=== PATIENT | male | born 1995 | race Two or more races ===

== ENCOUNTER 2020-01-28 11:13 | Outpatient (REF) | payer OTHER, SELFPAY | END 2020-01-28 11:14 | disposition home or self-care (01) | LOC: HO.LAB 11:13 | PROVIDERS: PCP Internal Medicine; Visit Provider Internal Medicine | DX: Z20.828 Contact with and (suspected) exposure to other viral communicable diseases (principal) | CPT/HCPCS: C9803; U0003 ==

== ENCOUNTER 2021-03-16 09:08 | Emergency (ER) | payer OTHER, SELFPAY ==
--- NOTE | ~2021-03-16 | XR_ITS ---
EXAMINATION: XR FINGER, RIGHT CLINICAL INFORMATION: Crush injury COMPARISON: None 3 views of the middle finger on the right does not demonstrate evidence for fracture or dislocation. XR/XR finger RT min 2V IMPRESSION: No displaced fracture or dislocation right third finger
[2021-03-16 09:28] VITALS: BP 140/85; PULSE 105; RESP 18; TEMP 37; O2SAT 97; BMI 22.6
--- NOTE | 2021-03-16 11:31 | ED.EXTPRO ---
HPI - Extremity Problem General Chief complaint: Extremity Injury, Upper Stated complaint: finger injury work related Time Seen by Provider: 03/16/21 11:28 Source: patient Mode of arrival: ambulatory Limitations: no limitations History of Present Illness HPI Narrative: Patient comes to the emergency room complaining of a right middle finger crush injury to the distal aspect of the finger. 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 Patient complaining of localized pain, no other injuries. Related Data Allergies Allergy/AdvReac Type Severity Reaction Status Date / Time No Known Allergies Allergy Verified 03/16/21 09:27 Review of Systems Review of Systems: Constitutional : No Weight loss, No Fever, No Chills, No Night Sweats, No Fatigue, No Malaise ENT/Mouth : No Hearing loss, No Ear Pain, No Nasal Congestion, No Sinus Pain, No Hoarseness, No sore throat, No Rhinorrhea, No Swallowing Difficulty Eyes: No Eye Pain, No Swelling, No Redness, No Foreign Body, No Discharge, No Vision Changes Cardiovascular : No Chest Pain, No SOB, No Dyspnea on Exertion, No Orthopnea, No Edema, No Palpitations Respiratory : No Cough, No Sputum, No Wheezing, No Smoke Exposure, No Dyspnea Gastrointestinal : No Nausea, No Vomiting, No Diarrhea, No Constipation, No abdominal Pain, No Hematochezia, No Melena Genitourinary : no irregular bleeding, No Dysuria, No Urinary Frequency, No Hematuria, No Urinary Incontinence, No Urgency, No Flank Pain, No Urinary Flow Changes, No Hesitancy Musculoskeletal : Complaining of pain in the middle finger distal aspect right hand, No Myalgias, No Joint Swelling Skin : No Skin Lesions, No rash Neuro : No Weakness, No Numbness, No Paresthesias, No Loss of Consciousness, No Dizziness, No Headache Psych : No Anxiety/Panic, No Depression, No SI/HI/AH/VH, No Social Issues, Heme/Lymph: No Bruising, No Bleeding,No Lymphadenopathy Endocrine : No Polyuria, No Polydipsia, No Temperature Intolerance [facility] Social History Social History Advance Directives: No Advance Directives Information Provided: No Physical Exam Vital Signs: Vital Signs: Last Vital Signs Temp 98.6 F 03/16/21 09:28 Pulse 105 H 03/16/21 09:28 Resp 18 03/16/21 09:28 BP 140/85 H 03/16/21 09:28 Pulse Ox 97 03/16/21 09:28 BMI result Body Mass Index 22.6 Const: Other: Appearance: Alert. Oriented X3. No acute distress. Eyes: Pupils equal, round and reactive to light. ENT: Pharynx normal. Neck: Normal inspection. Neck supple. No lymph nodes noted. No crepitus CVS: Normal heart rate and rhythm. Pulses normal. Normal S1 and S2 Respiratory: No respiratory distress. Breath sounds normal. No Wheezing. No rales Abdomen: Soft and nontender. No rigidity. No distention. good BS x4 Skin: Skin warm and dry. Normal skin color. Normal skin turgor. Small abrasion to the right middle finger Extremities: No lower extremity edema. Mild ecchymosis on the palmar aspect of the right middle finger, no abrasions, no necrosis, normal flexion and extension of the finger Neuro: Oriented X 3. No motor deficit. No sensory deficit. Moving all extermities. No slurred speech. Course Course Course Narrative: Patient's x-rays are negative. Patient was given Tdap since the skin did break, small abrasion. MDM - Extremity (Nontraumatic) Imaging Data Right hand x-ray: Radiologist's impression: 3 views of the middle finger on the right does not demonstrate evidence for fracture or dislocation. XR/XR finger RT min 2V IMPRESSION: No displaced fracture or dislocation right third finger Discharge Plan Discharge Clinical Impression: Crush injury to finger Qualifiers: Encounter type: initial encounter Qualified Code(s): S67.10XA - Crushing injury of unspecified finger(s), initial encounter Patient Disposition: Home, Self-Care Instructions: Crush Injury (ED) Additional Instructions: Please follow-up with your primary care physician tomorrow. If you have any worsening or new symptoms, please return to the emergency room or call 911
[2021-03-16] MEDS: Diphth,Pertus(ACell),Tet Adult 0.5 ML SYRINGE IM (11:56)
== END 2021-03-16 12:01 | disposition home or self-care (01) ==
PROVIDERS: Emergency Provider Emergency Medicine
DX: S67.10XA Crushing injury of unspecified finger(s), initial encounter (principal); S60.511A Abrasion of right hand, initial encounter; M79.644 Pain in right finger(s); Y29.XXXA Contact with blunt object, undetermined intent, initial encounter; Y93.9 Activity, unspecified; Y92.9 Unspecified place or not applicable; Y99.9 Unspecified external cause status
CPT/HCPCS: 73140; 90471; 90715; 99283; 99284

== ENCOUNTER → 2021-07-06 10:48 | Outpatient (BNVA) | payer OTHER, SELFPAY | PROVIDERS: Visit Provider Physician Assistant | DX: S39.012A Strain of muscle, fascia and tendon of lower back, initial encounter (principal); X50.0XXA Overexertion from strenuous movement or load, initial encounter | CPT/HCPCS: 99203 ==

== ENCOUNTER → 2021-07-13 15:35 | Outpatient (BNVA) | payer OTHER, SELFPAY | PROVIDERS: Visit Provider Physician Assistant | DX: S39.012D Strain of muscle, fascia and tendon of lower back, subsequent encounter (principal); X58.XXXD Exposure to other specified factors, subsequent encounter | CPT/HCPCS: 99213 ==

== ENCOUNTER 2021-09-25 18:15 | Emergency (ER) | payer OTHER, MEDICAID, SELFPAY ==
--- NOTE | ~2021-09-25 | CT_ITS ---
EXAMINATION: CT ABDOMEN AND PELVIS WITH CONTRAST CLINICAL INFORMATION: Abdominal pain COMPARISON: 12/26/2018 TECHNIQUE: Multidetector volumetric images were obtained from the superior aspect of the liver through the pubic symphysis following administration 85 mL of Omnipaque 350 intravenous contrast. Sagittal and coronal reformatted images were obtained on the technologist's workstation. Oral contrast: No This CT examination was performed using dose optimization techniques as appropriate, variously including the following: *Automated exposure control *Adjustment of mA and/or kV according to patient size (this includes techniques or standardized protocols for targeted exams where dose is matched to indication/reason for exam; i.e. extremities or head) *Use of iterative reconstruction technique DLP: 450 mGy-cm FINDINGS: LUNG BASES: The visualized lung bases are unremarkable. LIVER, GALLBLADDER, AND BILIARY TREE: The liver is normal in size, shape, and attenuation. No focal hepatic lesion or biliary ductal dilatation is present. The gallbladder is unremarkable with no evidence of radiopaque gallstones, gallbladder wall thickening, or obvious pericholecystic inflammatory changes. PANCREAS: Unremarkable. SPLEEN: Unremarkable. ADRENAL GLANDS: Unremarkable. KIDNEYS AND URETERS: The kidneys are normal in size, shape, and attenuation. No hydronephrosis, hydroureter, or obstructing calculi seen. No perinephric stranding. BLADDER: Unremarkable. GASTROINTESTINAL TRACT: No evidence of bowel obstruction. No significant bowel wall thickening is seen. No free fluid or free air is seen. ABDOMINAL WALL: No significant hernia is appreciated. LYMPH NODES: Normal. VASCULAR: Unremarkable. PELVIC VISCERA: Unremarkable. OSSEOUS STRUCTURES: Unremarkable. CT/CT abdomen pelvis w con IMPRESSION: No acute findings identified in the abdomen/pelvis.
[2021-09-25 18:27] VITALS: BP 143/87; PULSE 78; RESP 18; TEMP 36.6; O2SAT 98; BMI 25.0
[2021-09-25 21:42] LABS: MANUAL DIFF FLAG NO
[2021-09-25 21:49] LABS: Basophils Absolute Auto 0.1 X10*3/uL (0.0-0.2); Basophils Percent Auto 0.6 % (0-2); Eosinophils Absolute Auto 0.1 X10*3/uL (0.0-0.4); Eosinophils Percent Auto 1.3 % (0-4); Hematocrit 43.5 % (42.0-52.0); Hemoglobin 14.5 g/dl (14.0-18.0); Imm Gran Abs Auto 0.02 X10*3/uL (0.00-0.03); Imm Gran Pct Auto 0.2 % (0.0-0.4); Lymphocytes Absolute Auto 3.1 X10*3/uL (1.2-4.9); Lymphocytes Percent Auto 34.1 % (20-40); Mean Corpuscular HGB Conc 33.3 g/dl (31.0-36.0); Mean Corpuscular Hemoglobin 26.1 pg (27.0-33.0); Mean Corpuscular Volume 78.2 fL (80.0-98.0); Mean Platelet Volume 9.8 fL (9.4-12.4); Monocytes Absolute Auto 0.6 X10*3/uL (0.1-1.2); Monocytes Percent Auto 6.9 % (2-11); Neutrophils Absolute Auto 5.2 x10*3/uL (2.0-8.3); Neutrophils Percent Auto 56.9 % (45-73); Platelet Count 336 X10*3/uL (160-400); Red Blood Count 5.56 X10*6/uL (4.60-5.80); Red Cell Distribution Width 13.3 % (11.0-16.0); White Blood Count 9.1 X10*3/uL (4.8-10.8)
[2021-09-25 22:12] LABS: Alanine Aminotransferase 33 U/L (0-40); Albumin Level 4.5 g/dL (3.5-5.0); Alkaline Phosphatase 86 U/L (39-117); Anion Gap 13 (12-20); Aspartate Amino Transferase 17 U/L (5-37); Bilirubin Total 0.8 mg/dL (0.0-1.0); Blood Urea Nitrogen 12 mg/dL (9-16); Calcium 9.9 mg/dL (8.4-10.2); Carbon Dioxide 28 mmol/L (22-29); Chloride 104 mmol/L (96-108); Creatinine Clr Calc Pharmacy 131.4; Estimated Glomerular Filt Rate > 60; Glucose Random 118 mg/dL (60-115); Potassium 3.8 mmol/L (3.3-5.1); Sodium 141 mmol/L (135-145); Total Protein 7.8 g/dL (6.5-8.0)
--- NOTE | 2021-09-25 23:53 | ED.ABDPAIN ---
HPI - Abdominal Pain General Chief Complaint: Abdominal Pain Stated Complaint: abdominal pain Time Seen by Provider: 09/25/21 23:34 Source: patient Mode of arrival: ambulatory Limitations: no limitations History of Present Illness HPI narrative: 26-year-old male presents with abdominal pain and intermittent bulging at a prior surgical incision site. States that the abdominal pain and bulging occurs when he is lifting at work. He was seen at urgent care and referred to the emergency department as he has had prior abdominal surgeries and needs more imaging than urgent care to provide. Patient denies fevers, chills, abdominal distention, obstruction, dysuria, urinary retention, chest pain or pressure, palpitations, weakness or diaphoresis. MD elicited complaint: abdominal pain Pertinent past history: other (Abdominal surgery for hernia repair) Onset (ago): week(s) Pain Consistency: intermittent Location: diffuse Severity: moderate Pain scale (0-10): 6 Quality: aching Radiation: none Exacerbating factors: movement and other (Lifting) Relieving factors: rest Context: other (Prior abdominal surgery) Associated symptoms: denies other symptoms Related Data Allergies Allergy/AdvReac Type Severity Reaction Status Date / Time No Known Allergies Allergy Verified 03/16/21 09:27 Review of Systems Review of Systems Constitutional: No Fever, No Chills ENT/Mouth: No Ear Pain, No Hoarseness, No sore throat Eyes: No Eye Pain, No Swelling, No Redness, No Foreign Body Cardiovascular: No Chest Pain, No SOB Respiratory: No Cough, No Dyspnea Gastrointestinal: No Nausea, No Vomiting, No Diarrhea, positive abdominal Pain, positive abdominal bulging Genitourinary: No Dysuria, No Hematuria Musculoskeletal: No joint pain, No Myalgias, No Joint Swelling Skin: No Skin lacerations, No rash Neuro: No Weakness, No Numbness, No Paresthesias, No Loss of Consciousness, No Dizziness, No Headache Psych: No Anxiety/Panic, No Depression Heme/Lymph: no easy bruising, no Lymphadenopathy Endocrine: No Polyuria, No Polydipsia Yes all other systems are reviewed and are negative [facility] Past Medical History Attestation statement: The following information was validated with the patient. Source: old records reviewed Social History Social History Advance Directives: No Physical Exam ED Vital Signs: Vital Signs - 24 hr 09/25/21 18:27 Temperature 97.8 F Pulse Rate 78 Respiratory Rate 18 Blood Pressure 143/87 H Pulse Oximetry 98 Oxygen Delivery Method Room Air BMI result Body Mass Index 25.0 Appearance: Alert. Oriented X3. No acute distress. Eyes: Pupils equal, round and reactive to light. ENT: Pharynx normal. Neck: Normal inspection. Neck supple. CVS: Normal heart rate and rhythm. Pulses normal. Respiratory: No respiratory distress. Breath sounds normal. Abdomen: Soft and nontender. Transverse surgical scar about 3 cm above umbilicus. Skin: Skin warm and dry. Normal skin color. Normal skin turgor. Extremities: Gait well balanced well coordinated. Neuro: No motor deficit. No sensory deficit. Cranial nerves 2-12 intact. Course Course Course Narrative: 26-year-old male presents from urgent care for evaluation for suspected hernia and a transverse surgical site. This transverse surgical site was a prior hernia repair. Patient does not complain of any abdominal distention, or inability to pass flatus or stools. He does report that his stool smell worse than normal, does not report any abnormal coloring or form. Will order CT scan of abdomen and pelvis as patient states that there is this intermittent bulging at the center of the transverse surgical site. Physical exam is unremarkable. I do not appreciate any bulging at this time. 02:00 CT scan of abdomen pelvis is negative for acute findings. Will have patient follow-up with his primary care physician as well as work connection as he does only report this bulging and pain while he is lifting heavy objects while at work. Patient verbalized understanding of and agrees to plan of care discharge home. Verbalized understanding of signs and symptoms indicating need for emergent intervention. MDM - Abdominal Pain Differential Diagnosis Differential diagnosis: Likely abdominal pain and small bowel obstruction Differential diagnosis narrative:: hernia Medical Records Attestation: I reviewed the patient's medical records. Lab Data Attestation: I reviewed the patient's lab results. Result diagrams: 09/25/21 21:38 09/25/21 21:38 Labs: Lab Results 09/25/21 09/25/21 Range/Units 21:38 21:38 WBC 9.1 (4.8-10.8) X10*3/uL RBC 5.56 (4.60-5.80) X10*6/uL Hgb 14.5 (14.0-18.0) g/dl Hct 43.5 (42.0-52.0) % MCV 78.2 L (80.0-98.0) fL MCH 26.1 L (27.0-33.0) pg MCHC 33.3 (31.0-36.0) g/dl RDW 13.3 (11.0-16.0) % Plt Count 336 (160-400) X10*3/uL MPV 9.8 (9.4-12.4) fL Immature Gran % (Auto) 0.2 (0.0-0.4) % Neut % (Auto) 56.9 (45-73) % Lymph % (Auto) 34.1 (20-40) % [place] % (Auto) 6.9 (2-11) % Eos % (Auto) 1.3 (0-4) % Baso % (Auto) 0.6 (0-2) % Lymph # (Auto) 3.1 (1.2-4.9) X10*3/uL [place] # (Auto) 0.6 (0.1-1.2) X10*3/uL Eos # (Auto) 0.1 (0.0-0.4) X10*3/uL Baso # (Auto) 0.1 (0.0-0.2) X10*3/uL Abs Immat Gran (auto) 0.02 (0.00-0.03) X10*3/uL Absolute Neuts (auto) 5.2 (2.0-8.3) x10*3/uL Absolute Nucleated RBC 0.000 (0.0-0.012) X10*3/uL Nucleated RBC % (auto) 0.0 (0.0-0.2) /100WBC Sodium 141 (135-145) mmol/L Potassium 3.8 (3.3-5.1) mmol/L Chloride 104 (96-108) mmol/L Carbon Dioxide 28 (22-29) mmol/L Anion Gap 13 (12-20) BUN 12 (9-16) mg/dL Creatinine 0.81 (0.5-1.4) mg/dL Estim Creat Clear Calc 131.4 Estimated GFR > 60 Random Glucose 118 H (60-115) mg/dL Calcium 9.9 (8.4-10.2) mg/dL Magnesium 1.9 (1.6-2.6) mg/dL Total Bilirubin 0.8 (0.0-1.0) mg/dL Direct Bilirubin 0.3 (0.0-0.5) mg/dL AST 17 (5-37) U/L ALT 33 (0-40) U/L Alkaline Phosphatase 86 (39-117) U/L Total Protein 7.8 (6.5-8.0) g/dL Albumin 4.5 (3.5-5.0) g/dL Lipase 31 (8-78) U/L Imaging Data CT scan - abdomen: Attestation: I personally reviewed and interpreted this imaging study as follows: Radiologist's impression: FINDINGS: LUNG BASES: The visualized lung bases are unremarkable.? LIVER, GALLBLADDER, AND BILIARY TREE: The liver is normal in size, shape, and attenuation. No focal hepatic lesion or biliary ductal dilatation is present. The gallbladder is unremarkable with no evidence of radiopaque gallstones, gallbladder wall thickening, or obvious pericholecystic inflammatory changes.? PANCREAS: Unremarkable.? SPLEEN: Unremarkable.? ADRENAL GLANDS: Unremarkable.? KIDNEYS AND URETERS: The kidneys are normal in size, shape, and attenuation. No hydronephrosis, hydroureter, or obstructing calculi seen. No perinephric stranding. BLADDER: Unremarkable.? GASTROINTESTINAL TRACT: No evidence of bowel obstruction. No significant bowel wall thickening is seen. No free fluid or free air is seen.? ABDOMINAL WALL: No significant hernia is appreciated.? LYMPH NODES: Normal. VASCULAR: Unremarkable. PELVIC VISCERA: Unremarkable.? OSSEOUS STRUCTURES: Unremarkable.? CT/CT abdomen pelvis w con IMPRESSION: No acute findings identified in the abdomen/pelvis.? Discharge Plan Discharge Clinical Impression: Abdominal pain Patient Disposition: Home, Self-Care Instructions: Abdominal Pain (ED) Additional Instructions: You were evaluated for abdominal pain. CT scan of abdomen pelvis is negative for acute findings requiring emergent intervention. Please follow-up with your primary care physician for suspected hernia. Please follow-up with [facility] if symptoms persist. Return to the emergency department for any new, concerning, or worsening symptoms. Referrals: [facility] [Provider Group] (Abdominal pain, suspected hernia from heavy lifting) Stand Alone Forms: Work/School Release
[2021-09-26 00:28] LABS: Bilirubin Direct 0.3 mg/dL (0.0-0.5); Lipase 31 U/L (8-78); Magnesium 1.9 mg/dL (1.6-2.6)
[2021-09-26] MEDS: iohexoL 350 MG/ML 100 ML INFUS..BTL 85 ML IV (01:24)
== END 2021-09-26 02:27 | disposition home or self-care (01) ==
PROVIDERS: Emergency Medicine Emergency Medical Services; Emergency Provider Emergency Medicine
DX: R10.9 Unspecified abdominal pain (principal); Z79.899 Other long term (current) drug therapy
CPT/HCPCS: 36415; 74177; 80053; 82248; 83690; 83735; 85025; 99282; 99284; Q9967

== ENCOUNTER → 2021-10-01 13:36 | Outpatient (BNVA) | payer OTHER, SELFPAY | PROVIDERS: Visit Provider Internal Medicine | DX: R10.9 Unspecified abdominal pain (principal); R22.9 Localized swelling, mass and lump, unspecified | CPT/HCPCS: 99202 ==

== ENCOUNTER → 2021-10-05 15:20 | Outpatient (BNVA) | payer OTHER, SELFPAY | PROVIDERS: PCP Internal Medicine; Visit Provider Surgery | DX: R10.13 Epigastric pain (principal) | CPT/HCPCS: 99202 ==

== ENCOUNTER → 2021-10-22 15:46 | Outpatient (BNVA) | payer OTHER, SELFPAY | PROVIDERS: PCP Internal Medicine; Visit Provider Internal Medicine | DX: R10.9 Unspecified abdominal pain (principal) | CPT/HCPCS: 99213 ==

== ENCOUNTER 2021-12-06 09:56 | Emergency (ER) | payer OTHER, SELFPAY ==
--- NOTE | ~2021-12-06 | XR_ITS ---
EXAMINATION: XR CHEST CLINICAL INFORMATION: Dyspnea COMPARISON: Chest radiograph 04/15/2018 TECHNIQUE: 2 views of the chest were obtained. FINDINGS: No significant abnormality is noted involving the heart, lungs, mediastinum, bony thorax or soft tissues. XR/XR chest 2V IMPRESSION: Unremarkable examination.
[2021-12-06 10:01] VITALS: BP 146/100; PULSE 98; O2SAT 99
--- NOTE | 2021-12-06 10:01 | ECG_ITS ---
Test Reason : chest pain Blood Pressure : / mmHG Vent. Rate : 072 BPM Atrial Rate : 072 BPM P-R Int : 148 ms QRS Dur : 094 ms QT Int : 372 ms P-R-T Axes : 055 071 044 degrees QTc Int : 407 ms Normal sinus rhythm Normal ECG No previous ECGs available Referred By: Generic ED Physician Electronically Signed By:RICARDA CRUZ
[2021-12-06 10:07] VITALS: BP 142/78; PULSE 85; RESP 16; TEMP 36.6; O2SAT 97; BMI 24.8
== END 2021-12-06 16:41 | disposition left against medical advice (07) ==
PROVIDERS: Emergency Provider Emergency Medicine; PCP Internal Medicine
DX: R07.9 Chest pain, unspecified (principal); R06.02 Shortness of breath
CPT/HCPCS: 71046; 93005; 99283

== ENCOUNTER 2021-12-13 14:55 | Outpatient (REF) | payer OTHER, SELFPAY ==
[2021-12-13 15:06] LABS: MANUAL DIFF FLAG NO
[2021-12-13 15:16] LABS: Basophils Percent Auto 0.3 % (0-2); Eosinophils Absolute Auto 0.1 X10*3/uL (0.0-0.4); Eosinophils Percent Auto 0.6 % (0-4); Hematocrit 44.4 % (42.0-52.0); Hemoglobin 14.6 g/dl (14.0-18.0); Imm Gran Abs Auto 0.03 X10*3/uL (0.00-0.03); Imm Gran Pct Auto 0.3 % (0.0-0.4); Lymphocytes Absolute Auto 2.3 X10*3/uL (1.2-4.9); Lymphocytes Percent Auto 25.4 % (20-40); Mean Corpuscular HGB Conc 32.9 g/dl (31.0-36.0); Mean Corpuscular Hemoglobin 25.6 pg (27.0-33.0); Mean Corpuscular Volume 77.8 fL (80.0-98.0); Mean Platelet Volume 9.5 fL (9.4-12.4); Monocytes Absolute Auto 0.6 X10*3/uL (0.1-1.2); Monocytes Percent Auto 6.1 % (2-11); Neutrophils Percent Auto 67.3 % (45-73); Platelet Count 360 X10*3/uL (160-400); Red Blood Count 5.71 X10*6/uL (4.60-5.80); Red Cell Distribution Width 13.5 % (11.0-16.0)
[2021-12-13 15:46] LABS: Alanine Aminotransferase 36 U/L (0-40); Albumin Level 4.6 g/dL (3.5-5.0); Alkaline Phosphatase 87 U/L (39-117); Anion Gap 14 (12-20); Aspartate Amino Transferase 17 U/L (5-37); Bilirubin Total 0.7 mg/dL (0.0-1.0); Blood Urea Nitrogen 9 mg/dL (9-16); Calcium 9.8 mg/dL (8.4-10.2); Carbon Dioxide 27 mmol/L (22-29); Chloride 103 mmol/L (96-108); Cholesterol 173 mg/dL; Estimated Glomerular Filt Rate > 60; Glucose Random 96 mg/dL (60-115); HDL Cholesterol 52 mg/dL; LDL Cholesterol Calculated 100 mg/dl; Potassium 3.8 mmol/L (3.3-5.1); Sodium 140 mmol/L (135-145); Total Protein 7.6 g/dL (6.5-8.0); Triglycerides 109 mg/dL
[2021-12-13 16:10] LABS: Ferritin 89 ng/mL (20-250)
== END 2021-12-13 14:56 | disposition home or self-care (01) ==
LOC: HO.LAB 14:55
PROVIDERS: PCP Internal Medicine; Visit Provider Internal Medicine
DX: Z00.00 Encounter for general adult medical examination without abnormal findings (principal); K21.9 Gastro-esophageal reflux disease without esophagitis; F90.2 Attention-deficit hyperactivity disorder, combined type; F31.9 Bipolar disorder, unspecified
CPT/HCPCS: 36415; 80053; 80061; 82728; 84443; 85025

== ENCOUNTER 2022-06-12 10:37 | Emergency (ER) | payer OTHER, MEDICAID, SELFPAY ==
--- NOTE | 2022-06-12 | ECG_ITS ---
Test Reason : cp Blood Pressure : / mmHG Vent. Rate : 071 BPM Atrial Rate : 071 BPM P-R Int : 156 ms QRS Dur : 096 ms QT Int : 350 ms P-R-T Axes : 030 060 037 degrees QTc Int : 380 ms Normal sinus rhythm Normal ECG When compared with ECG of 06-DEC-2021 10:01, No significant change was found Referred By: Generic ED Physician Electronically Signed By:Reese Hassan
[2022-06-12 10:41] VITALS: BP 127/72; PULSE 70; RESP 18; TEMP 36.7; O2SAT 98; BMI 25.2
--- OUTSIDE RECORDS SUMMARY | 2022-06-12 11:10 | XMS_ITS | Continuity of Care Document ---
Author Name Unknown Organization [facility] Address [address] [place] [address] [address] [place] [address]- Care Team Providers Care Coding Analyst Name Role Phone Susan Reynolds MD Primary Care Physician [facility] [id number] Date(s): 03/06/22 - 05/11/[address] [place] [address]- Attending Physician: Marvin Moreno MD Referring Physician: Susan Reynolds MD Allergies, Adverse Reactions, Alerts No Known Allergies Medications cloNIDine 0.2 mg oral tablet 0.2 mg, 1, tablet, By Mouth, Daily at bedtime, Refills 0, Maintenance, 11/23/21 13:30:00 EDT, Partial fill upon patient request if the prescription is for a schedule II opioid drug. Start Date: 11/23/21 Status: Ordered mirtazapine 30 mg oral tablet 1 tablet = 30 mg, By Mouth, Daily at bedtime, # 30 tablet, 0 Refills, Maintenance, 02/08/22 16:12:00 EST, Tablet, Partial fill upon patient request if the prescription is for a schedule II opioid drug. Start Date: 02/08/22 Status: Ordered propranolol 20 mg oral tablet 20 mg, 1, tablet, By Mouth, Daily in AM, # 60 tablet, Refills 5, Maintenance, 02/08/22 16:11:00 EST, Partial fill upon patient request if the prescription is for a schedule II opioid drug. Start Date: 02/08/22 Status: Ordered risperiDONE 1 mg oral tablet 1 mg, 1, tablet, By Mouth, Daily in AM, # 60 tablet, Refills 0, Maintenance, 03/12/22 16:36:00 EST,Partial fill upon patient request if the prescription is for a schedule II opioid drug. Start Date: 03/12/22 Status: Ordered risperiDONE 2 mg oral tablet 2 mg, 1, tablet, By Mouth, Daily at bedtime, # 30 tablet, Refills 0, Maintenance, 11/23/21 13:30:00EDT, Partial fill upon patient request if the prescription is for a schedule II opioid drug. Start Date: 11/23/21 Status: Ordered Vyvanse 60 mg oral capsule 1 capsule = 60 mg, By Mouth, Daily in AM, 0 Refills, Maintenance, 11/23/21 13:29:00 EDT, Capsule, Partial fill upon patient request if the prescription is for a schedule II opioid drug. Start Date: 11/23/21 Status: Ordered Social History Social History Type Response Smoking Status Never (less than 100 in lifetime) entered on: 11/23/21 Sex Patient Care team information Care Team Personnel Name: Susan Reynolds MD Position: [facility] Outreach Member Role: PCP Address: Address: [address] [place] [address] [address] [place] [address]- Care Team Related Persons Name: MARIEL PATEL
--- OUTSIDE RECORDS SUMMARY | 2022-06-12 11:10 | XMS_ITS | Continuity of Care Document ---
Author Name Unknown Organization [facility] Address [address] [place] [address] [address] [place] [address]- Care Team Providers Care Executive Business Coach Name Role Phone Susan Reynolds MD Primary Care Physician Encounter [facility] Date(s): 03/22/22 - 04/21/[address] [place], [place] [address] Allergies, Adverse Reactions, Alerts No Known Allergies [...] Team Personnel Name: Susan Reynolds MD Position: [facility] Outreach Member Role: PCP Address: Address: [address] [place] [address] [address] [place] [address]- Care Team Related Persons Name: MARIEL PATEL
--- OUTSIDE RECORDS SUMMARY | 2022-06-12 11:10 | XMS_ITS | Continuity of Care Document ---
Author Name Unknown Organization [facility] Address [address] [place] [address] [address] [place] [address]- Care Team Providers Care Software Engineer Developer Name Role Phone Susan Reynolds MD Primary Care Physician Encounter [facility] Date(s): 11/23/21 - 12/23/[address] [place], [place] [address] Attending Physician: Quincy Geller Admitting Physician: AdmQuincy kohler Referring Physician: Admtr, Ar8 Allergies, Adverse Reactions, Alerts No Known Allergies Medications cloNIDine 0.2 mg oral tablet 0.2 mg, 1, tablet, By Mouth, Once, Refills 0, Maintenance, 11/23/21 13:30:00 EDT, Partial fill uponpatient request if the prescription is for a schedule II opioid drug. Start Date: 11/23/21 Status: Ordered mirtazapine 15 mg oral tablet 1 tablet = 15 mg, By Mouth, Daily at bedtime, # 30 tablet, 0 Refills, Maintenance, 11/23/21 13:30:00 EDT, Tablet, Partial fill upon patient request if the prescription is for a schedule II opioid drug. Start Date: 11/23/21 Status: Ordered Omeprazole By Mouth, Daily, 0 Refills, Maintenance, 11/23/21 13:30:00 EDT, Partial fill upon patient request if the prescription is for a schedule II opioid drug. Start Date: 11/23/21 Status: Ordered risperiDONE 2 mg oral tablet 2 mg, 1, tablet, By Mouth, Daily, # 30 tablet, Refills 0, Maintenance, 11/23/21 13:30:00 EDT, Partial [...] on: 11/23/21 Sex Patient Care team information Personnel Name: Susan Reynolds MD Address: Address: [address] [place] [address] [address] [place] [address]
--- OUTSIDE RECORDS SUMMARY | 2022-06-12 11:10 | XMS_ITS | Continuity of Care Document ---
Author Name Unknown Organization [facility] Address [address] [place] [address]- Care Team Providers Care Concrete Finisher Apprentice Name Role Phone Rodolfo NAZARIO, Susan Calderon Primary [facility] Phys[id number] Date[facility]/12/[facility] - 04/11/22 [facility] [address] [place], [place] [address] Allergies, Adverse Reactions, Alerts No Known [...] Team Personnel Name: Susan Reynolds MD Position: [facility] Outreach Member Role: PCP Address: Address: [address] [place] [address] [address] [place] [address]- Care Team Related Persons Name: MARIEL PATEL
--- OUTSIDE RECORDS SUMMARY | 2022-06-12 11:10 | XMS_ITS | Continuity of Care Document ---
Author Name Unknown Organization [facility] Address [address] [place] [address] [address] [place] [address]- Care Team Providers Care Oracle Brm Developer Name Role Phone Susan Reynolds MD Primary Care Physician Encounter [facility] Date(s): 04/11/22 - 05/11/[address] [place] [address]- Attending Physician: Quincy Geller Admitting Physician: AdmtrQuincy Referring Physician: Admtr Ar8 Allergies, Adverse Reactions, Alerts No Known [...] Team Personnel Name: Susan Reynolds MD Position: [facility] Outreach Member Role: PCP Address: Address: [address] [place] [address] [address] [place] [address]- Care Team Related Persons Name: MARIEL PATEL
--- OUTSIDE RECORDS SUMMARY | 2022-06-12 11:10 | XMS_ITS | Continuity of Care Document ---
Author Name Unknown Organization [facility] Address [address] [place] [address] [address] [place] [address]- Care Team Providers Care Surgical Instrument Repair Specialist Name Role Phone Susan Reynolds MD Primary Care Physician Encounter [facility] Date(s): 04/05/22 - 04/12/[address] [place] [address]- Attending Physician: Ta Baumann MD Referring Physician: Susan Reynolds MD Allergies, [...] opioid drug. Start Date: 11/23/21 Status: Ordered Vital Signs Most recent to oldest [Reference Range]: 1 Height 167.64 cm (04/05/22 2:32 PM) Weight 70.45 kg (04/05/22 2:32 PM) Pulse Rate [55-90 bpm] 72 bpm (04/05/22 2:32 PM) Body Mass Index [18.5-24.99 kg/m2] 25.07 kg/m2 *H* (04/05/22 2:32 PM) Blood Pressure [90-138/55-84 mm Hg] 109/ 68mm Hg (04/05/22 2:32 PM) Respiratory Rate [16-30 br/min] 16 br/mi n (04/05/22 2:32 PM) Temperature [96.8-100.4 DegF] 98.1 DegF (04/05/22 2:32 PM) Blood pressure sites Arm, right (04/05/22 2:32 PM) Temperature Route Temporal (04/05/22 2:32 PM) Weight Obtained Via Standing scale (04/05/22 2:32 PM) Social History Social History Type Response Smoking Status Never (less than 100 in lifetime) entered on: 11/23/21 Sex Patient Care team information Care Team Personnel Name: Susan Reynolds MD Position: [facility] Outreach Member Role: PCP Address: Address: [address] [place] [address]- Care Team Related Persons Name: MARIEL PATEL
--- OUTSIDE RECORDS SUMMARY | 2022-06-12 11:10 | XMS_ITS | Continuity of Care Document ---
Author Name Unknown Organization [facility] [place] [address] Address [address] [place] [id number]- Care Team Providers Care [place] Supervisor Name Role Phone Rodolfo NAZARIO, Susan Calderon Primary Care Physician [phone] Encounter [facility] Date(s): 03/18/22 - 03/18/[address] [id number] Discharge Disposition: A-D/C Home Attending Physician: Ta Baumann MD Admitting Physician: Ta Baumann MD Referring Physician: Ta Baumann MD Allergies, Adverse Reactions, Alerts No Known Allergies Medications acetaminophen 325 mg oral tablet 650 mg, 2, tablet, By Mouth, Every 4 hours, PRN, for 5 days, # 60 tablet, Refills 0, Tot. Refills 0, Acute 03/23/22 8:22:00 EST, as needed for pain, 03/18/22 8:22:00 EST, Route to Pharmacy Electronically, [facility], Partial fill upon pa... Start Date: 03/18/22 Stop Date: 03/23/22 Status: Ordered cloNIDine 0.2 mg oral tablet 0.2 mg, [...] opioid drug. Start Date: 02/08/22 Status: Ordered oxyCODONE 5 mg oral tablet 5 mg, 1, tablet, By Mouth, Every 4 hours, PRN, for 2 days, # 5 tablet, Refills 0, Tot. Refills 0, Acute 03/20/22 8:22:00 EST, for pain, 03/18/22 8:22:00 EST, Route to Pharmacy Electronically, [facility], Partial fill upon patient request... Start Date: 03/18/22 Stop Date: 03/20/22 Status: Ordered propranolol 20 mg oral tablet [...] Most recent to oldest [Reference Range]: 1 2 3 Height 167.64 cm (03/18/22 7:17 AM) 167.64 cm (03/12/22 4:45 PM) Weight 70 kg (03/12/22 4:45 PM) Oxygen Saturation [94-100 %] 99 % (03/18/22 9:30 AM) 99 % (03/18/22 9:15 AM) 99 % (03/18/22 9:00 AM) Pulse Rate [55-90 bpm] 95 bpm *H* (03/18/22 7:17 AM) Body Mass Index [18.5-24.99 kg/m2] 24.91 kg/m2 (03/12/22 4:45 PM) Blood Pressure [90-138/55-84 mm Hg] 147/73mm Hg *H* (03/18/22 9:30 AM) 155/81mm Hg *H* (03/18/22 9:15 AM) 151/70mm Hg *H* (03/18/22 9:00 AM) Respiratory Rate [16-30 br/min] 21 br/min (03/18/22 9:30 AM) 28 br/min (03/18/22 9:15 AM) 16 br/min (03/18/22 9:00 AM) Temperature [96.8-100.4 DegF] 98.6 DegF (03/18/22 9:15 AM) 97.9 DegF (03/18/22 8:30 AM) 97.8 DegF (03/18/22 7:17 AM) Liters per Minute 6 L/min (03/18/22 8:30 AM) Mode of Delivery (Oxygen) Room air (03/18/22 9:15 AM) Room air (03/18/22 8:45 AM) Simple face mask (03/18/22 8:30 AM) Blood pressure sites Arm, left (03/18/22 9:15 AM) Arm, left (03/18/22 9:00 AM) Arm, left (03/18/22 8:30 AM) Temperature Route Temporal (03/18/22 8:30 AM) Temporal (03/18/22 7:17 AM) Dry Weight 68.5 kg (03/18/22 7:17 AM) 70 kg (03/12/22 4:45 PM) Weight Obtained Via Patient/family state d (03/12/22 4:45 PM) Dry Weight Obtained Via Standing scale (03/18/22 7:17 AM) Patient/family stated (03/12/22 4:45 PM) Social History Social History Type Response Smoking Status Never (less than 100 in lifetime) entered on: 11/23/21 Sex Note * Zoran RN, Laura D: PERFORM Event Display: Discharge/Transfer Note Hospital Authored Date: [id number] Nursing Discharge Note Entered On: 03/18/2022 8:55 EST Performed On: 03/18/2022 8:55 EST by Laura Meehan RN Nursing Discharge Note 2 Discharge Time : 03/18/2022 9:56 EST Mud Mixer Utilized : No Patient Left Unit Via : Wheelchair Patient Accompanied Off Unit with : Responsible adult DC Instructions Provided & Signed by Pt : Yes Patient Understands D/C Instructions : Yes Verbalized Understanding of D/C Plan By : Patient, Significant other Patient Instructions Discharge Signed : Yes Did Pt have Specialty Bed or Wound Vac : No Laura Meehan RN - 03/18/2022 10:10 EST Discharge Level of Care at Discharge : Home/Half-Way/Foster Care Laura Meehan RN - 03/18/2022 8:55 EST * Laura Meehan RN: PERFORM Event Display: Patient Education/Instruction Authored Date: [id number] Inpatient Adult Discharge Instructions [address] [address] Name: BEAU LEIVA : 1995 Visit: 03/18/2022 05:20:00 Current Date: 03/18/2022 09:25 Account: [id number] Inpatient Adult Discharge Instructions We would like to thank you for allowing us to assist you with your healthcare needs. The following includes patient education materials and information regarding your injury/illness. Our entire staffstrives to provide an excellent experience for our patients and their families. PLEASE ENSURE YOU FOLLOW-UP PER THE INSTRUCTIONS BELOW! ?? YOUR OPINION IS IMPORTANT TO US! Please complete the survey you may receive by mail or email. Your feedback will be used to make improvements to the healthcare experiences of our patients and their families. Surveys are administered by [employer] ?? If further treatment with your primary care physician or another doctor is recommended, it is important for you to keep the appointment. Call your primary care physician or return to the Emergency Department immediately if your condition worsens, fails to improve, or new symptoms develop. If you need to find a doctor, you can call [facility] [employer] for a referral at [phone] or toll free at [phone] or log in to [email or web address].. ?? You can view and manage your care through the patient portal or by using a health care rubio of your choosing. [employer] is a website that allows you to securely view your medical information including your hospital discharge summary, office visit summaries, medications and follow-up visits. You can also request appointments, renew medications, and request access to your medical information using a health care rubio of your choosing, or just ask a question. You can enroll at [email or web address] or register during your next office visit. You have been discharged from [facility], Patient Care Unit: [facility]. If you have any questions regarding these instructions after you leave, please call us and we will be happy to assist you. [facility] Your Care Team Attending Physician Ta Baumann MD Discharging Providers Nithin Arguello DO Reason for Admission ABD [facility] Tests Performed Below is a partial list of the tests performed during your hospitalization. You may have had other tests and procedures not included in this list. Please discuss all test results with your provider. Primary Care Provider Rodolfo NAZARIO, Susan Calderon Advance Directive Health Care Proxy on File Yes - Health Care Proxy No qualifying data available. Discharge Vitals Temperature: 98.6 DegF Height: 167.64 cm Pulse Rate:??95 bpm??High Weight: 70 kg Respiratory Rate: 28 br/min Body Mass Index: 24.91 kg/m2 Systolic Blood Pressure:??155 mm Hg??High Body surface area: 1.81 Diastolic Blood Pressure: 81 mm Hg ?? Oxygen Saturation: 99 % ?? Studies Pending All tests and labs ordered during this hospital stay have been completed unless listed below. Please discuss all pending results with your provider listed above in these instructions. ?? CBC Type and Screen What to do next Instructions From Your Doctor Discharge Orders Instructions from your Care Team You may remove your dressing in 5 days.?? You may shower and gently pat dry over your dressing.?? Do not soak in a tub or swim until you are cleared by your surgeon.?? Keep your scheduled follow up appointment Scheduled Follow-Up Appointments 2022 9:40 AM EST ?? With: Joshua Ruiz Where: [facility] General Surgery [address] [place] [address] Drive [address] [place] [address]- You Need to Schedule the Following Appointments Follow Up with??Ibis NAZARIO, Ta When??Within 1-2 day: call to discuss follow up visit Where: Discharge Medications BEAU LEIVA :1995 Visit Date:03/18/2022 Medications: Please continue your medications until treatment is completed or stopped by your provider. Medications not listed below should be discontinued. Discuss any questions related to medications with your provider. What How Much When Instructions Next Dose New Acetaminophen (acetaminophen 325 mg oral tablet) 2 tab(s) Oral Every 4 hours as needed for as needed for pain Duration: 5 Days Pickup at [facility] 3 130pm New Oxycodone (oxyCODONE 5 mg oral tablet) 1 tab(s) Oral Every 4 hours as needed for for pain Duration: 2 Days Pickup at [facility] 3 when needed Unchanged Clonidine (cloNIDine 0.2 mg oral tablet) 1 tab(s) Oral Daily at Bedtime resume home schedule Unchanged lisdexamfetamine (Vyvanse 60 mg oral capsule) 1 capsule Oral Daily in the morning resume home schedule Unchanged Mirtazapine (mirtazapine 30 mg oral tablet) 1 tab(s) Oral Daily at Bedtime resume home schedule Unchanged Propranolol (propranolol 20 mg oral tablet) 1 tab(s) Oral Daily in the morning resume home schedule Unchanged Risperidone (risperiDONE 1 mg oral tablet) 1 tab(s) Oral Daily in the morning resume home schedule Unchanged Risperidone (risperiDONE 2 mg oral tablet) 1 tab(s) Oral Daily at Bedtime resume home schedule Pharmacy Information [facility]: [address], [place] [id number] [phone] Test Results Below is a partial list of the most recent Laboratory test results done prior to this discharge. You may have had other tests and procedures not included in this list. Please discuss all test resultswith your provider. Allergies (NKA means No Known Allergies) NKA Problems No qualifying data available Education Materials Below is the list of Educational Leaflet Providered with your Discharge Instructions. Surgery Medical Daystay Surgical Overnight Discharge Instructions?? Valuables and Belongings I fully understand and agree that [facility] accepts no responsibility for all my personal property including clothing, toilet articles, radios, jewelry, dentures, hearing aids, rings, money, or any other property that is in my possession or is brought to me after admission. I understand certain valuables may be placed in a hospital safe for a short period of time. I understand that the hospital is not liable for loss or damage due to accident, fire, or other natural occurrence while said property is in the safe. I accept full responsibility for any personal property that I keep with me, and will not hold the hospital responsible in case of loss or disappearance. I acknowledge that i have been encouraged to send valuables and belongings home. ?? Review of Valuable and Belonging List: With patient Possessions released to: Glasses taken by girlfriend, other belongings to PACU Date for Pt to Sign Valuables/Belongings: 03/18/22 08:01:00 ?? Valuables & Belongings ?? Clothes Electronic devices Jewelry Monetary Items Personal devices Miscellaneous Medications (Valuables) Valuables at Bedside Pants, Shirt, Shoes, Undergarments Cell phone ? Valuables Sent Home ? Valuables Sent to Security ? Other Discharge Information ? Case Management Discharge Plan?? Discharge Plan?? Discharge Level of Care at Discharge: Home/Half-Way/Foster Care ?? Pulmonary Rehab Status?? Pulmonary Rehab Discharge Status?? Respiratory Rate: 28 br/min ? Common Emergency Awareness Tips IS IT A STROKE? Act FAST and Check for these signs: FACE Does the face look uneven? ARM Does one arm drift down? SPEECH Does their speech sound strange? TIME Call at any sign of stroke ?? Heart Attack Signs Chest discomfort: Most heart attacks involve discomfort in the center of the chest and lasts more than a few minutes, or goes away and comes back. It can feel like uncomfortable pressure, squeezing, fullness or pain. Discomfort in upper body: Symptoms can include pain or discomfort in one or both arms, back, neck, jaw or stomach. Shortness of breath: With or without discomfort. Other signs: Breaking out in a cold sweat, nausea, or lightheaded. Remember, MINUTES DO MATTER. If you experience any of these heart attack warning signs, call to get immediate medical attention! ?? Smoking can increase your chances of developing chronic health problems and can cause harmful effects to other family members in your house. If you smoke, you are strongly encouraged to quit. Please call [facility] [email or web address] Link at [phone] or [phone] ([phone]) or log in to [email or web address] for referrals to smoking cessation programs. ?? The National Suicide Prevention Hotline is available 30/09 if you or someone you know needs to find a reason to keep living. By calling 1-901-898-Clickyreserva (0976) you'll be connected to a skilled, trained counselor at a crisis center in your area. INPATIENT DISCHARGE INSTRUCTIONS SIGNATURE PAGE ABBIEBEAU Location:[facility] Registration Date and Time:03/18/2022 05:20 [facility] Primary Care Physician: Rodolfo NAZARIO, Susan Calderon, I BEAU LEIVA, have received the above patient education materials/instructions and have verbalized understanding. If ambulance or transport services are being used I further acknowledge being given a choice of service. ?? If you need to contact me, please call me at this number: . Patient/Cement Conveyor Operator Name: Patient/Cement Conveyor Operator Signature: Relationship to Patient: Witness Name/Signature: Date: * Laura Meehan RN: PERFORM Event Display: Patient Education Leaflets Authored Date: [id number] Surgery Medical Daystay Surgical Overnight Discharge Instructions ?? 295 Medical Daystay/Surgical Overnight Discharge Instructions ? Since your coordination and judgment may be altered by medication and/or anesthesia, a responsible adult must drive you home from the hospital. ? If you have received medication for pain or sedation while under our care, you should not drive, operate machinery, drink alcohol, or sign any legal documents for 24 hours.?? You should have someone with you at home tonight. ? Remain at home the day of discharge.?? You may be up and about unless otherwise instructed by your physician. ? You may resume your daily prescription medication schedule.?? Any depressant medication should be avoided for 24 hours unless otherwise instructed by your surgeon or anesthesiologist. ? Call your physician for a follow-up appointment.? If you experience unusual or severe pain not relied by your pain medication, excessive bleedingor drainage, persistent nausea and vomiting, excessive swelling or redness, foul odor from incisionsite or fever over 100.6F, you need to call your physician. ? A follow-up phone call by a nurse will be made the day after your procedure.?? If you have stayed with us over night, you will not be receiving a follow-up phone call. ? Nausea and vomiting are a common side effect of prescription pain medication.?? We recommend that pills are not taken on an empty stomach.?? While taking any prescription pain medication you should not drive or drink alcohol. ? Patient Care team information Care Team Personnel Name: Susan Reynolds MD Position: [facility] Outreach Member Role: PCP Address: Address: [address] [place] [address]- Care Team Related Persons Name: MARIEL PATEL
--- NOTE | 2022-06-12 11:16 | ED_ITS ---
HPI - Chest Pain General Chief Complaint: Chest Pain Stated Complaint: Chest pain, SOB per EMS Time Seen by Provider: 06/12/22 11:15 Source: patient Mode of arrival: EMS Limitations: no limitations History of Present Illness HPI narrative: 27-year-old male who presents emergency department for evaluation of left-sided chest pain. The patient works at a [employer]. States that he was at work and doing his job which involves repetitive movement as well was lifting heavy boxes. The patient states that at 09:00 hours at a sudden onset of pain in his left chest. Describes the pain is a squeezing, heaviness. The patient had no other associated symptoms such as diaphoresis, nausea, vomiting, lightheadedness or dizziness. He denied any radiation of the pain to his neck, jaw, arms or back. He states he had similar pain 6 months prior He denied fever, chills, rhinorrhea, sore throat, cough. He does not have any significant cardiac risk factors. He has not gone on any long trips has had no pain or swelling in his lower extremities. Related Data Home Medications Medication Instructions Recorded Confirmed clonidine HCl 0.2 mg tablet 0.2 mg PO BEDTIME 10/05/21 10/05/21 lisdexamfetamine 60 mg capsule 60 mg PO DAILY 10/05/21 10/05/21 (Vyvanse) mirtazapine 15 mg tablet 15 mg PO BEDTIME 10/05/21 10/05/21 omeprazole 20 mg capsule,delayed 20 mg PO DAILY 10/05/21 10/05/21 release risperidone 2 mg tablet 2 mg PO BEDTIME 10/05/21 10/05/21 Allergies Allergy/AdvReac Type Severity Reaction Status Date / Time No Known Allergies Allergy Verified 06/12/22 10:46 Review of Systems Review of Systems: Yes all other systems are reviewed and are negative [facility] Past Medical History [facility] Narrative: Past medical history: Depression, anxiety, bipolar disorder, ADHD. Social history: He denies tobacco use. He states that he rarely drinks alcohol. He denies drug use. Family History Family History Mother Breast cancer Social History Social History Alcohol intake: current Alcohol intake frequency: holidays/special occasions only Patient Tobacco Use Status: Never used Tobacco Advance Directives: No Advance Directives Information Provided: No Physical Exam Vital Signs: Vital Signs: Last Vital Signs Temp 98.0 F 06/12/22 10:41 Pulse 70 06/12/22 10:41 Resp 18 06/12/22 10:41 BP 127/72 06/12/22 10:41 Pulse Ox 98 06/12/22 10:41 O2 Del Method Room Air 06/12/22 10:41 BMI result Body Mass Index 25.2 Const: Other: Awake, alert, male patient, pleasant, cooperative in no distress, answers all questions appropriately HEENT: Head: Yes normal to inspection, Yes normocephalic and Yes atraumatic Ears: external ears normal General nose exam: Normal external nose present Face and sinus: Yes normal facial exam Mouth: Normal oral and palatal mucosa present Throat: Yes posterior oropharynx normal Eyes: General: appearance normal, both eyes and all related structures Neck: Neck: Yes normal visual inspection, Yes no lymphadenopathy, Yes trachea midline and Yes supple Chest: Other: Patient has tenderness palpation of his left chest wall, this reproduces his pain Resp: Effort & Inspection: normal respiratory effort and able to speak in complete sentences Auscultation: clear to auscultation bilaterally Cardio: Rate: regular rate Rhythm: regular rhythm Heart sounds: S1 normal heart sound present, S2 normal heart sound present and no murmurs GI: Inspection: Yes normal to inspection Palpation (GI): Soft to palpation, nontender and no guarding Auscultation: normal bowel sounds : General: Yes no CVA tenderness Back/Spine/Pelvis: Back: no CVA tenderness Skin: General skin exam: no rashes or lesions noted Neuro: Cognition (Neuro): normal cognition Motor exam (neuro): 5/5 motor strength present throughout Extrem: General: Yes normal to inspection Psych: Appearance: grossly normal Speech and movement: Normal speech and movement present Affect: normal affect Attitude: cooperative Medical Decision Making Medical Decision Making MDM Narrative: 27-year-old male who presents emergency department for evaluation of sudden onset of left-sided chest pain which described as a heaviness and squeezing sensation. 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 Patient states 10 similar pain 6 months prior. The patient's vital signs were normal. His O2 saturation was 98% on room air, he was not tachypneic or tachycardic. His examination did reveal left-sided chest wall tenderness. Is 12 EKG was normal. Patient's PERC was negative. Patient's pain is most likely consistent with musculoskeletal pain I did discuss this with him. He was given ibuprofen 400 mg orally here in the emergency department. The patient will be discharged home but I do think the can return to work tomorrow with full duty. Differential Diagnosis Differential diagnosis includes was not limited to musculoskeletal pain, costochondritis, muscle strain, myocardial infarction, pulmonary embolus Independent Interpretation I performed an independent interpretation of an: EKG Interpretation: Patient's 12 EKG done at 10:45 hours was interpreted by me as follows: Normal sinus rhythm with a rate of 71, normal MA interval, QRS duration QTC interval, no ST segment elevation, no ST segment depression, no PACs, no PVCs. This is a normal EKG. Discharge Plan Discharge Clinical Impression: Acute chest wall pain Patient Disposition: Home, Self-Care Instructions: Chest Wall Pain (ED) Additional Instructions: Your exam did reveal tenderness with pressure her pushing on your left side of your chest. This is consistent with inflammation or strain of the muscles of your chest wall. Your 12 EKG was normal. At this time, I do not think that your pain is caused by your heart or your lungs. I did locate your laboratory evaluation from 09/25/2021 and 12/13/2021. Your blood work at that time was normal. You do not have any anemia or any other abnormalities in your blood work to be concerned about. Take ibuprofen 200 mg pills, 2 pills every 6 hours as needed for pain. Take Tylenol (acetaminophen) 500 mg pills, 2 pills every 6 hours as needed for pain. Follow-up with your doctor in 2 days. Please return to the emergency department if your symptoms get worse or if you develop any symptoms that are concerning to you. Please see work note. I also filled out your company's work form for you. Prescriptions: No Action risperidone 2 mg tablet 2 mg PO BEDTIME mirtazapine 15 mg tablet 15 mg PO BEDTIME omeprazole 20 mg capsule,delayed release(DR/EC) 20 mg PO DAILY clonidine HCl 0.2 mg tablet 0.2 mg PO BEDTIME Vyvanse 60 mg capsule 60 mg PO DAILY Stand Alone Forms: Work/School Release
[2022-06-12 12:15] VITALS: BP 126/67; PULSE 67; RESP 18; O2SAT 100
== END 2022-06-12 12:17 | disposition home or self-care (01) ==
PROVIDERS: Emergency Provider Emergency Medicine Emergency Medical Services; PCP Internal Medicine
DX: Z04.2 Encounter for examination and observation following work accident (principal); R07.9 Chest pain, unspecified
CPT/HCPCS: 93005; 99283; 99285

== ENCOUNTER 2022-08-20 06:15 | Emergency (ER) | payer OTHER, MEDICAID, SELFPAY ==
--- NOTE | ~2022-08-20 | US_ITS ---
EXAMINATION: US SCROTUM CLINICAL INFORMATION: Sudden onset of scrotal pain. COMPARISON: None available. TECHNIQUE: A sonogram of the scrotum was performed assessing stanton-scale appearance and color Doppler flow. Spectral Doppler analysis of the arterial and venous flow were performed in the testes bilaterally. FINDINGS: RIGHT: Right testicle measures 5.0 x 2.2 x 3.0 cm, volume 16.8 mL. No focal testicular parenchymal lesions are visualized. Spectral Doppler analysis of the arterial and venous flow is normal in the right testis. The right testicle is hypermobile with movement from right scrotum to right inguinal canal. Right epididymal head is normal in size. No right hydrocele or varicocele is seen. Right epididymal Doppler flow is normal. LEFT: Left testicle measures 5.2 x 2.0 x 3.0 cm, volume 16.2 mL. No focal testicular parenchymal lesions are visualized. Spectral Doppler analysis of the arterial and venous flow is normal in the left testis. Left epididymal head is normal in size. No left hydrocele or varicocele is seen. Left epididymal Doppler flow is normal. US/US scrotum IMPRESSION: Hypermobility of right testicle. Otherwise normal scrotal ultrasound.
--- NOTE | ~2022-08-20 | US_ITS ---
EXAMINATION: US SCROTUM CLINICAL INFORMATION: Sudden onset of scrotal pain. COMPARISON: None available. TECHNIQUE: A sonogram of the scrotum was performed assessing stanton-scale appearance and color Doppler flow. Spectral Doppler analysis of the arterial and venous flow were performed in the testes bilaterally. FINDINGS: RIGHT: Right testicle measures 5.0 x 2.2 x 3.0 cm, volume 16.8 mL. No focal testicular parenchymal lesions are visualized. Spectral Doppler analysis of the arterial and venous flow is normal in the right testis. The right testicle is hypermobile with movement from right scrotum to right inguinal canal. Right epididymal head is normal in size. No right hydrocele or varicocele is seen. Right epididymal Doppler flow is normal. LEFT: Left testicle measures 5.2 x 2.0 x 3.0 cm, volume 16.2 mL. No focal testicular parenchymal lesions are visualized. Spectral Doppler analysis of the arterial and venous flow is normal in the left testis. Left epididymal head is normal in size. No left hydrocele or varicocele is seen. Left epididymal Doppler flow is normal. US/US scrotum doppler IMPRESSION: Hypermobility of right testicle. Otherwise normal scrotal ultrasound.
[2022-08-20 06:29] VITALS: BP 136/75; PULSE 79; RESP 16; TEMP 36.4; O2SAT 98; BMI 25.0
--- NOTE | 2022-08-20 06:42 | ED_ITS ---
HPI - General Adult General Chief complaint: General Medical Stated complaint: Testicle pain Time Seen by Provider: 08/20/22 06:42 Source: patient Mode of arrival: ambulatory Limitations: no limitations History of Present Illness HPI narrative: Patient is a 27 year old male with no known significant past medical history presenting today for testicular pain that started yesterday (08/19/22) around 1045. He reports that pain started right after moving furniture the previous day (08/18/2022). He took Motrin and applied ice to the affected area with no effect. He reports that the pain is constant, isolated to his testicles, and is non-radiating. He admits to being sexually active with one partner, his fiance. He denies nausea, vomiting, headache or abdominal pain. He has no other acute concerns at this time. Onset (ago): day(s) Location: genitals Radiation: non-radiation Severity: moderate Severity scale (1-10): 3 Quality: aching Pain Consistency: constant Relieving factors: none Exacerbating factors: none Associated symptoms: denies other symptoms Treatments prior to arrival: cold therapy Related Data Home Medications Medication Instructions Recorded Confirmed clonidine HCl 0.2 mg tablet 0.2 mg PO BEDTIME 10/05/21 10/05/21 lisdexamfetamine 60 mg capsule 60 mg PO DAILY 10/05/21 10/05/21 (Vyvanse) mirtazapine 15 mg tablet 15 mg PO BEDTIME 10/05/21 10/05/21 omeprazole 20 mg capsule,delayed 20 mg PO DAILY 10/05/21 10/05/21 release risperidone 2 mg tablet 2 mg PO BEDTIME 10/05/21 10/05/21 Previous Rx's Medication Instructions Recorded doxycycline hyclate 100 mg tablet 100 mg PO BID 7 days #14 tabs 08/20/22 Allergies Allergy/AdvReac Type Severity Reaction Status Date / Time No Known Allergies Allergy Verified 06/12/22 10:46 Review of Systems Constitutional: Constitutional: Reports no additional constitutional complaints, Denies chills, Denies fever(s) and Denies night sweats Eyes: Eyes: Reports no additional eye complaints, Denies blurry vision, Denies change in vision, Denies diplopia, Denies eye discharge, Denies loss of vision and Denies eye pain ENT: Denies dizziness Cardiovascular: Cardiovascular: Reports no additional cardiovascular complaints, Denies chest pain, Denies lightheadedness, Denies Loss of Consciousness and Denies dyspnea Respiratory: Respiratory: Reports no additional respiratory complaints and Denies dyspnea Gastrointestinal: Gastrointestinal: Reports no additional gastrointestinal complaints, Denies abdominal pain, Denies melena, Denies hematochezia, Denies change in bowel habits and Denies change in stool character Genitourinary: Genitourinary: Reports no additional male genitourinary complaints, Denies hematuria, Denies oliguria, Denies difficulty urinating, Denies dysuria, Reports testicular pain, Denies urinary frequency, Denies ur inary hesitancy, Denies urinary incontinence and Denies urinary urgency Musculoskeletal: Musculoskeletal: Reports no additional musculoskeletal co mplaints, Denies numbness and Denies tingling Neurologic: Denies dizziness, Denies loss of vision, Denies numbness and Denies tingling Psychiatric: Psychiatric: Reports no additional psychiatric complaints Endocrine: Endocrine: Reports no additional endocrine complaints Hematologic/Lymphatic: Hematologic/Lymphatic: Reports no additional hematologic/lymphatic complaints Allergic/Immunologic: Allergic/Immunologic: Reports no additional allergic/immunologic complaints [facility] Past Medical History Attestation statement: The following information was validated with the patient. Source: old records reviewed and nursing notes reviewed Family History Family History Mother Breast cancer Social History Social History Alcohol intake: never Patient Tobacco Use Status: Never used Tobacco Smoked in Last 30 Days: No Use of substances other than those prescribed or required for medical reasons: No Advance Directives: No Physical Exam ED Vital Signs: Vital Signs - 24 hr 08/20/22 06:29 08/20/22 06:47 08/20/22 08:16 Temperature 97.5 F 98.7 F Pulse Rate 79 70 58 Respiratory Rate 16 17 16 Blood Pressure 136/75 126/87 122/79 Pulse Oximetry 98 97 100 Oxygen Delivery Method Room Air Room Air Room Air BMI result Body Mass Index 25.0 Const General: cooperative, no acute distress, alert and awake Nutritional Appearance: well nourished Orientation/consciousness: patient oriented x3 Limitations: no limitations HENMT Head: Yes normal to inspection Ears: hearing grossly normal bilaterally and external ears normal General nose exam: Normal external nose present, no nasal discharge noted and no epistaxis Face and sinus: Yes normal facial exam, No abrasion and No laceration Mouth: Normal oral and palatal mucosa present, no drooling and no muffled voice Eyes General: appearance normal, both eyes and all related structures Periorbital: periorbital findings normal Eyelids: Yes eyelids normal Conjunctivae: conjunctivae normal Pupils: Equal, round and reactive pupils present EOM: EOMs intact bilaterally Neck Neck: Yes normal visual inspection Chest Chest palpation & inspection: normal inspection of the chest Resp Effort & Inspection: normal respiratory effort and able to speak in complete sentences Auscultation: clear to auscultation bilaterally Cardio Rate: regular rate Rhythm: regular rhythm GI Inspection: Yes normal to inspection Palpation (GI): Soft to palpation, not firm, nontender, no guarding and not rigid Male General Exam: Yes normal external exam Penis: normal penis Scrotum: scrotum normal Testes: Testes normal Neuro General: patient oriented x3 Cranial nerves: Yes Equal, round and reactive pupils present Cognition (Neuro): normal cognition Motor exam (neuro): 5/5 motor strength present throughout Sensory Exam: Normal double simultaneous stimulation for sensation Coordination: [id number] test normal Extrem General: Yes normal to inspection Psych Appearance: grossly normal Mental Status: mental status grossly normal Affect: normal affect Attitude: cooperative Thought process: Normal thought process present Thought content: Normal thought content present Insight: Good insight present (Psych) Medications Administered Discontinued Medications Generic Name Dose Route Start Last Admin Trade Name Freq PRN Reason Stop Dose Admin Ceftriaxone Sodium 500 mg 08/20/22 06:56 08/20/22 07:12 Ceftriaxone Sodium 500 Mg Vial IM 08/20/22 06:57 500 mg ONCE ONE Administration Ketorolac Tromethamine 15 mg 08/20/22 06:56 08/20/22 07:12 Ketorolac Tromethamine 15 Mg/Ml Vial IM 08/20/22 06:57 15 mg ONCE ONE Administration Medical Decision Making Medical Decision Making MDM Narrative: Patient is a 27 year old assigned male at with no reported medical history presenting to the emergency department today with testicular pain. Patient's physical exam was unremarkable. Patient's genital exam was performed with a chaparone ([facility]) at the bed side. Patient's blood work was unremarkable. Patient's urine showed no acute process. Patient's scrotal US showed a hypermobile right testicle but was otherwise unremarkable. I explained my physical exam findings as well as all test results to the patient. I answered all questions asked by the patient. I stressed the importance of the patient taking his medication as prescribed. I stressed the importance of the patient following up with his primary care provider and a urologist. I stressed the importance of the patient returning to the emergency department immediately if his symptoms were to worsen or if he were to develop any dizziness, shortness of breath, difficulty breathing, chest pain, blurry vision, loss of vision, nausea, vomiting, abdominal pain, fever, chills, back pain, or any other complaints. Patient verbalized agreement and understanding with this treatment plan and discharge. Differential Diagnosis Differential Diagnoses: The differential diagnosis associated with the presentation includes testicular pain, epididimytis Admission/Observation Consideration of admission/observation: Escalation of care including admission/observation considered Patient would have been admitted to the hospital had his work up had any findin gs where hospital admission was appropriate. Lab Data MDM Lab Attestation statement: I reviewed the patient's lab results. My interpretation of these studies and their corresponding values is that they are grossly normal. 08/20/22 06:54 08/20/22 06:54 Labs: Lab Results 08/20/22 08/20/22 08/20/22 Range/Units 06:54 06:54 06:55 WBC 7.1 (4.8-10.8) X10*3/uL RBC 5.75 (4.60-5.80) X10*6/uL Hgb 14.9 (14.0-18.0) g/dl Hct 44.9 (42.0-52.0) % MCV 78.1 L (80.0-98.0) fL MCH 25.9 L (27.0-33.0) pg MCHC 33.2 (31.0-36.0) g/dl RDW 13.6 (11.0-16.0) % Plt Count 311 (160-400) X10*3/uL MPV 9.9 (9.4-12.4) fL Immature Gran % (Auto) 0.1 (0.0-0.4) % Neut % (Auto) 66.5 (45-73) % Lymph % (Auto) 24.3 (20-40) % [place] % (Auto) 6.9 (2-11) % Eos % (Auto) 1.8 (0-4) % Baso % (Auto) 0.4 (0-2) % Lymph # (Auto) 1.7 (1.2-4.9) X10*3/uL [place] # (Auto) 0.5 (0.1-1.2) X10*3/uL Eos # (Auto) 0.1 (0.0-0.4) X10*3/uL Baso # (Auto) 0.0 (0.0-0.2) X10*3/uL Abs Immat Gran (auto) 0.01 (0.00-0.03) X10*3/uL Absolute Neuts (auto) 4.7 (2.0-8.3) x10*3/uL Absolute Nucleated RBC 0.000 (0.0-0.012) X10*3/uL Nucleated RBC % (auto) 0.0 (0.0-0.2) /100WBC Sodium 142 (135-145) mmol/L Potassium 4.1 (3.3-5.1) mmol/L Chloride 107 (96-108) mmol/L Carbon Dioxide 25 (22-29) mmol/L Anion Gap 14 (12-20) BUN 9 (9-16) mg/dL Creatinine 0.82 (0.5-1.4) mg/dL Estim Creat Clear Calc 124.2 Estimated GFR > 60 Random Glucose 135 H (60-115) mg/dL Calcium 10.0 (8.4-10.2) mg/dL Magnesium 1.9 (1.6-2.6) mg/dL Total Bilirubin 0.7 (0.0-1.0) mg/dL AST 16 (5-37) U/L ALT 28 (0-40) U/L Alkaline Phosphatase 73 (39-117) U/L Total Protein 7.3 (6.5-8.0) g/dL Albumin 4.3 (3.5-5.0) g/dL Urine Color Yellow Urine Appearance Clear Urine pH 5.5 (5.0-9.0) Ur Specific [place] 1.020 (1.005-1.025) Urine Protein Negative (Neg-Trace) mg/dL Urine Glucose (UA) Negative (Negative) mg/dL Urine Ketones Negative (Negative) mg/dL Urine Blood Negative (Negative) Urine Nitrite Negative (Negative) Ur Leukocyte Esterase Negative (Negative) Independent Interpretation I performed an independent interpretation of an: Ultrasound Interpretation: My interpretation is in agreement with the radiologist's impression of this imaging study. EXAMINATION: US SCROTUM CLINICAL INFORMATION: Sudden onset of scrotal pain. COMPARISON: None available. TECHNIQUE: A sonogram of the scrotum was performed assessing stanton-scale appearance and color Doppler flow. Spectral Doppler analysis of the arterial and venous flow were performed in the testes bilaterally. FINDINGS: RIGHT: Right testicle measures 5.0 x 2.2 x 3.0 cm, volume 16.8 mL. No focal testicular parenchymal lesions are visualized. Spectral Doppler analysis of the arterial and venous flow is normal in the right testis. The right testicle is hypermobile with movement from right scrotum to right inguinal canal. Right epididymal head is normal in size. No right hydrocele or varicocele is seen. Right epididymal Doppler flow is normal. LEFT: Left testicle measures 5.2 x 2.0 x 3.0 cm, volume 16.2 mL. No focal testicular parenchymal lesions are visualized. Spectral Doppler analysis of the arterial and venous flow is normal in the left testis. Left epididymal head is normal in size. No left hydrocele or varicocele is seen. Left epididymal Doppler flow is normal. US/US scrotum doppler IMPRESSION: Hypermobility of right testicle. Otherwise normal scrotal ultrasound. Dictated By: Tan Summers MD Signed By: Electronically signed by Tan Summers MD 08/20/22 0814 Discharge Plan Discharge Clinical Impression: Pain in testicle Patient Disposition: Home, Self-Care Instructions: Testicle Pain (ED) Additional Instructions: Follow up with your primary care provider and a urologist. Return to the emergency department immediately if your symptoms worsen or if you develop any dizziness, shortness of breath, difficulty breathing, chest pain, blurry vision, loss of vision, nausea, vomiting, abdominal pain, fever, chills, back pain, or any other complaints. Prescriptions: New doxycycline hyclate 100 mg tablet 100 mg PO BID 7 Days Qty: 14 0RF No Action risperidone 2 mg tablet 2 mg PO BEDTIME mirtazapine 15 mg tablet 15 mg PO BEDTIME omeprazole 20 mg capsule,delayed release(DR/EC) 20 mg PO DAILY clonidine HCl 0.2 mg tablet 0.2 mg PO BEDTIME Vyvanse 60 mg capsule 60 mg PO DAILY Referrals: [facility] [Provider Group] (Call to establish and follow up with a urologist. ) Susan Reynolds MD [Primary Care Provider] - Stand Alone Forms: Work/School Release Interventions: ED Discharge Assessment Last Done: 08/20/22 08:30 Discharge Date/Time: 08/20/22 08:30 Print Language: Welsh
[2022-08-20 06:47] VITALS: BP 126/87; PULSE 70; RESP 17; TEMP 37.1; O2SAT 97
[2022-08-20 07:01] LABS: MANUAL DIFF FLAG NO
[2022-08-20 07:07] LABS: Basophils Percent Auto 0.4 % (0-2); Eosinophils Absolute Auto 0.1 X10*3/uL (0.0-0.4); Eosinophils Percent Auto 1.8 % (0-4); Hematocrit 44.9 % (42.0-52.0); Hemoglobin 14.9 g/dl (14.0-18.0); Imm Gran Abs Auto 0.01 X10*3/uL (0.00-0.03); Imm Gran Pct Auto 0.1 % (0.0-0.4); Lymphocytes Absolute Auto 1.7 X10*3/uL (1.2-4.9); Lymphocytes Percent Auto 24.3 % (20-40); Mean Corpuscular HGB Conc 33.2 g/dl (31.0-36.0); Mean Corpuscular Hemoglobin 25.9 pg (27.0-33.0); Mean Corpuscular Volume 78.1 fL (80.0-98.0); Mean Platelet Volume 9.9 fL (9.4-12.4); Monocytes Absolute Auto 0.5 X10*3/uL (0.1-1.2); Monocytes Percent Auto 6.9 % (2-11); Neutrophils Absolute Auto 4.7 x10*3/uL (2.0-8.3); Neutrophils Percent Auto 66.5 % (45-73); Platelet Count 311 X10*3/uL (160-400); Red Blood Count 5.75 X10*6/uL (4.60-5.80); Red Cell Distribution Width 13.6 % (11.0-16.0); White Blood Count 7.1 X10*3/uL (4.8-10.8)
[2022-08-20] MEDS: Ketorolac Tromethamine 15 MG/ML VIAL IM (07:12)
[2022-08-20] MEDS: cefTRIAXone sodium 500 MG VIAL IM (07:12)
[2022-08-20 07:13] LABS: Appearance Urine Clear; Color Urine Yellow; Glucose Urine UA Negative (Negative); Leukocyte Esterase Urine Negative (Negative); Nitrite Urine Negative (Negative); PH 5.5 (5.0-9.0); Urine Blood Negative (Negative); Urine Ketones Negative (Negative); Urine Protein Negative (Neg-Trace)
--- NOTE | 2022-08-20 07:16 | PC.NURSE ---
Initial contact with pt. medicated per order. pt c/o bilat testicle pain for one day without other symtpoms. bedside u/s in process.
[2022-08-20 07:21] LABS: Alanine Aminotransferase 28 U/L (0-40); Albumin Level 4.3 g/dL (3.5-5.0); Alkaline Phosphatase 73 U/L (39-117); Anion Gap 14 (12-20); Aspartate Amino Transferase 16 U/L (5-37); Bilirubin Total 0.7 mg/dL (0.0-1.0); Blood Urea Nitrogen 9 mg/dL (9-16); Carbon Dioxide 25 mmol/L (22-29); Chloride 107 mmol/L (96-108); Creatinine Clr Calc Pharmacy 124.2; Estimated Glomerular Filt Rate > 60; Glucose Random 135 mg/dL (60-115); Magnesium 1.9 mg/dL (1.6-2.6); Potassium 4.1 mmol/L (3.3-5.1); Sodium 142 mmol/L (135-145); Total Protein 7.3 g/dL (6.5-8.0)
[2022-08-20 08:16] VITALS: BP 122/79; PULSE 58; RESP 16; O2SAT 100
[2022-08-20 11:39] LABS: CT PCR NOT DETECTED (Not Detect.); NG PCR NOT DETECTED (Not Detect.)
== END 2022-08-20 08:30 | disposition home or self-care (01) ==
PROVIDERS: Physician Assistant Medical; Emergency Provider Internal Medicine; PCP Internal Medicine
DX: N50.82 Scrotal pain (principal); N48.89 Other specified disorders of penis; R10.2 Pelvic and perineal pain; Z79.899 Other long term (current) drug therapy
CPT/HCPCS: 0353U; 36415; 76870; 80053; 81003; 83735; 85025; 93975; 96372; 99284; J0696; J1885

== ENCOUNTER 2022-08-21 19:12 | Emergency (ER) | payer OTHER, MEDICAID, SELFPAY ==
[2022-08-21 19:30] VITALS: BP 140/80; PULSE 62; RESP 18; TEMP 36.7; O2SAT 99; BMI 25.0
--- NOTE | 2022-08-21 19:31 | ED_ITS ---
HPI - Male Genitourinary General Chief complaint: General Medical Stated complaint: testical pain Time Seen by Provider: 08/21/22 22:28 Source: patient Mode of arrival: ambulatory Limitations: no limitations History of Present Illness HPI Narrative: A 27-year-old male return to the emergency department for evaluation of testicular pain started 2 days ago, patient was seen and evaluated in the emergency department yesterday had an ultrasound of the testicle which showed a hypermobility of the right testicle, unremarkable labs, unremarkable UA. Patient's symptoms started after moving heavy furniture a day before symptoms started. By history patient at low risk for STDs and patient tested negative for GC/chlamydia yesterday. Patient returned because he cannot do his work while he is having that testicular pain. Related Data Home Medications Medication Instructions Recorded Confirmed clonidine HCl 0.2 mg tablet 0.2 mg PO BEDTIME 10/05/21 10/05/21 lisdexamfetamine 60 mg capsule 60 mg PO DAILY 10/05/21 10/05/21 (Vyvanse) mirtazapine 15 mg tablet 15 mg PO BEDTIME 10/05/21 10/05/21 omeprazole 20 mg capsule,delayed 20 mg PO DAILY 10/05/21 10/05/21 release risperidone 2 mg tablet 2 mg PO BEDTIME 10/05/21 10/05/21 Previous Rx's Medication Instructions Recorded doxycycline hyclate 100 mg tablet 100 mg PO BID 7 days #14 tabs 08/20/22 oxycodone 5 mg tablet 5 mg PO Q8H PRN pain #10 tabs 08/21/22 Allergies Allergy/AdvReac Type Severity Reaction Status Date / Time No Known Allergies Allergy Verified 06/12/22 10:46 Review of Systems Review of Systems: All other systems are reviewed and are negative Constitutional: Reports as per HPI and Reports no additional constitutional complaints Eyes: Reports as per HPI and Reports no additional eye complaints Reports system reviewed and no additional complaints, except as documented Cardiovascular: Reports as per HPI and Reports no additional cardiovascular complaints Respiratory: Reports as per HPI and Reports no additional respiratory complaints Gastrointestinal: Reports as per HPI and Reports no additional gastrointestinal complaints Genitourinary: Reports no additional female genitourinary complaints Musculoskeletal: Reports no additional musculoskeletal complaints Skin/Breast: Reports system reviewed and no additional complaints, except as docu Psychiatric: Reports no additional psychiatric complaints Endocrine: Reports no additional endocrine complaints Hematologic/Lymphatic: Reports no additional hematologic/lymphatic complaints Allergic/Immunologic: Reports no additional allergic/immunologic complaints Reports system reviewed and no additional complaints, except as documented and Reports Abnormal speech present [facility] Family History Family History Mother Breast cancer Social History Social History Alcohol intake: never Patient Tobacco Use Status: Never used Tobacco Advance Directives: No Advance Directives Information Provided: Yes Physical Exam Vital Signs: Vital Signs: Last Vital Signs Temp 97.3 F 08/21/22 20:50 Pulse 61 08/21/22 20:50 Resp 16 08/21/22 20:50 BP 133/78 08/21/22 20:50 Pulse Ox 98 08/21/22 20:50 O2 Del Method Room Air 08/21/22 20:50 BMI result Body Mass Index 25.0 Vital signs have been reviewed as appeared to be correct. Blood pressure normal . Heart rate normal. Respiration rate normal. Temperature normal. Oxygen saturation normal. Appearance: Alert. Oriented X3. No acute distress. Head: Normal external exam. Normocephalic. Atraumatic. No Coffey signs noted. No raccoon eyes noted Eyes: PERRLA. EOMI. Conjunctiva and sclera normal. Eyelids normal. ENT: TM's Normal. Pharynx normal. Uvula midline. Moist mucous membranes. No trismus noted. No drooling noted. No muffled voice noted. Neck: Normal inspection. Neck supple. FROM. No adenopathy. Thyroid Normal. No meningeal signs. No neck mass noted. CVS: Normal heart rate and rhythm. Heart sound normal. No murmurs noted. Pulses normal throughout. Respiratory: No respiratory distress. Painless inspiration. Breath sounds normal. No wheezes/rales/rhonchi noted. Chest nontender. No accessory muscle usage noted or decreased air movement noted. Abdomen: Soft and nontender. Bowel sounds normal in all 4 quadrants. No distention noted. No organomegaly noted. No visible injury noted. exam: Normal inspection to both testicle and scrotum, intact cremasteric muscle bilaterally, mild tender to both testicles no abnormal lie, no scrotal redness or hotness or tenderness. Back: No CVA tenderness. Full range of motion noted. Skin: Skin warm and dry. Normal skin color. Normal skin turgor. No rashes/lesions/lacerations noted. Extremities: No lower extremity edema. Extremities exhibit normal range of motion. Extremities nontender. Neuro: Oriented X 3. Cranial nerve exam: II-XII are grossly intact No motor deficit. No sensory deficit. Reflexes normal. Course Course Course Narrative: RME - 27 yo male presents to the ER for evaluation of 12/17 diffuse testicular pain that started 3 days ago and is now getting worse. Hx similar episodes since childhood. Seen here yesterday and had U/S showing hypermobility of right testicle. discharged with abx. Plan: Medical Decision Making Differential Diagnosis Differential Diagnoses: The differential diagnosis associated with the presentation includes (Epididymitis, STDs, testicular torsion, contusion of the right testicle.) Admission/Observation Consideration of admission/observation: Escalation of care including admission/observation considered Discharge Plan Discharge Clinical Impression: Pain in testicle Patient Disposition: Home, Self-Care Instructions: Testicle Pain (ED) Prescriptions: New oxycodone 5 mg tablet 5 mg PO Q8H PRN (Reason: pain) Qty: 10 0RF Rx Instructions: Partial Fill upon patient request. No Action doxycycline hyclate 100 mg tablet 100 mg PO BID 7 Days Qty: 14 0RF risperidone 2 mg tablet 2 mg PO BEDTIME mirtazapine 15 mg tablet 15 mg PO BEDTIME omeprazole 20 mg capsule,delayed release(DR/EC) 20 mg PO DAILY clonidine HCl 0.2 mg tablet 0.2 mg PO BEDTIME Vyvanse 60 mg capsule 60 mg PO DAILY Referrals: Susan Reynolds MD [Primary Care Provider] - Bryson Moore MD [Physician] - Stand Alone Forms: Work/School Release
[2022-08-21 20:50] VITALS: BP 133/78; PULSE 61; RESP 16; TEMP 36.3; O2SAT 98
[2022-08-21] MEDS: oxyCODONE HCl Immed Release 5 MG TABLET PO (22:56)
== END 2022-08-21 22:57 | disposition home or self-care (01) ==
PROVIDERS: Emergency Provider Emergency Medicine; PCP Internal Medicine
DX: N50.811 Right testicular pain (principal)
CPT/HCPCS: 99283

== ENCOUNTER → 2022-09-02 12:30 | Outpatient (BNVA) | payer OTHER, MEDICAID, SELFPAY | PROVIDERS: PCP Internal Medicine; Visit Provider Nurse Practitioner Family ==

== ENCOUNTER 2022-11-02 14:36 | Emergency (ER) | payer OTHER, MEDICAID, SELFPAY ==
[2022-11-02 14:36] VITALS: BP 147/86; PULSE 116; RESP 18; TEMP 37.3; O2SAT 95; BMI 24.0
--- NOTE | 2022-11-02 14:38 | ED_ITS ---
HPI - Psych General Chief Complaint: Psychiatric Symptoms Stated Complaint: crisis Time Seen by Provider: 11/02/22 15:15 Source: patient and family Mode of arrival: ambulatory Limitations: no limitations History of Present Illness HPI Narrative: This is a 27-year-old male with a history of anxiety, depression, PTSD, bipolar disorder who presents to the ER with complaints of increasing anxiety over the last few weeks despite taking his home medications. Patient denies any suicidal ideations, homicidal ideations, auditory or visual hallucinations. No substance use. No physical complaints. Patient reports that he does have a prescribing psychiatrist whose he has has been seeing. He has plans to restart seeing his therapist on Friday. Related Data Home Medications Medication Instructions Recorded Confirmed lisdexamfetamine 60 mg capsule 60 mg PO DAILY 10/05/21 11/02/22 (Vyvanse) omeprazole 20 mg capsule,delayed 20 mg PO DAILY PRN Indigestion 10/05/21 11/02/22 release risperidone 2 mg tablet 2 mg PO BEDTIME 10/05/21 11/02/22 mirtazapine 30 mg tablet 30 mg PO BEDTIME 09/02/22 11/02/22 propranolol 20 mg tablet 20 mg PO BID 09/02/22 11/02/22 Previous Rx's Medication Instructions Recorded meloxicam 15 mg tablet 15 mg PO DAILY 30 days #30 tabs 09/02/22 Allergies Allergy/AdvReac Type Severity Reaction Status Date / Time No Known Allergies Allergy Verified 11/02/22 14:42 Review of Systems Review of Systems: Yes all other systems are reviewed and are negative Constitutional: Constitutional: Reports no additional constitutional complaints, Denies body ache(s), Denies chills, Denies fever(s), Denies headache(s) and Denies weakness Eyes: Eyes: Reports no additional eye complaints and Denies change in vision ENT: Reports system reviewed and no additional complaints, except as documented, Denies dizziness, Denies headache(s), Denies nasal congestion, Denies nasal discharge and Denies neck pain Cardiovascular: Cardiovascular: Reports no additional cardiovascular complaints, Denies chest pain, Denies leg edema and Denies dyspnea Respiratory: Respiratory: Reports no additional respiratory complaints, Denies cough and Denies dyspnea Gastrointestinal: Gastrointestinal: Reports no additional gastrointestinal complaints, Denies abdominal pain, Denies diarrhea, Denies nausea and Denies vomiting Genitourinary: Genitourinary: Denies urinary incontinence Musculoskeletal: Musculoskeletal: Reports no additional musculoskeletal complaints, Denies back pain, Denies arthralgias, Denies joint swelling, Denies neck pain, Denies numbness and Denies tingling Integumentary/Breasts: Skin/Breast: Reports system reviewed and no additional complaints, except as docu and Denies rash Neurologic: Reports system reviewed and no additional complaints, except as documented, Denies Abnormal speech present, Denies dizziness, Denies headache(s), Denies numbness, Denies tingling and Denies weakness Psychiatric: Psychiatric: Reports anxiety, Denies depression, Denies homicidal ideation and Denies suicidal ideation [facility] Past Medical History Attestation statement: The following information was validated with the patient. Source: old records reviewed and nursing notes reviewed Family History Family History Mother Breast cancer Social History Social History Alcohol intake: current Alcohol intake frequency: holidays/special occasions only Patient Tobacco Use Status: Never used Tobacco Use of substances other than those prescribed or required for medical reasons: No Advance Directives: No Advance Directives Information Provided: No Physical Exam Vital Signs: Vital Signs: Last Vital Signs Temp 99.1 F 11/02/22 14:36 Pulse 116 H 11/02/22 14:36 Resp 18 11/02/22 14:36 BP 147/86 H 11/02/22 14:36 Pulse Ox 95 11/02/22 14:36 O2 Del Method Room Air 11/02/22 14:36 BMI result Body Mass Index 24.0 Const: General: cooperative, healthy appearing, comfortable and no acute distress Orientation/consciousness: patient oriented x3 Limitations: no limitations HEENT: Head: Yes normal to inspection Ears: hearing grossly normal bilate rally General nose exam: Normal external nose present Face and sinus: Yes normal facial exam Mouth: Normal oral and palatal mucosa present Throat: Yes posterior oropharynx normal Eyes: General: appearance normal, both eyes and all related structures Pupils: Equal, round and reactive pupils present Neck: Neck: Yes normal visual inspection Chest: Chest palpation & inspection: normal inspection of the chest Resp: Effort & Inspection: normal respiratory effort Auscultation: clear to auscultation bilaterally Cardio: Rate: regular rate Rhythm: regular rhythm Peripheral pulses: Peripheral pulses 2+ throughout GI: Inspection: Yes normal to inspection Palpation (GI): Soft to palpation and nontender Auscultation: normal bowel sounds Back/Spine/Pelvis: Thoracic/Lumbar Spine: thoracic and lumbar spine normal to inspection Skin: General skin exam: no rashes or lesions noted Neuro: General: patient oriented x3, no focal motor deficits and normal sensation to monofilament Cranial nerves: Yes Equal, round and reactive pupils present Cognition (Neuro): normal cognition Speech: No Abnormal speech present Gait exam (Neuro): Normal gait present Motor exam (neuro): 5/5 motor strength present throughout Extrem: General: Yes normal to inspection Course Course Course Narrative: This is an RME: Additional HPI, ROS, PE not included below will be deferred to primary provider. Patient is a 27 year old male with complaints of severe anxiety, worsening over the past year, stating I just can't take it anymore . Has a med prescribed for ADHD, bipolar disorder, depression, awaiting connection with a therapist. Denies SI/HI. Medical Decision Making Medical Decision Making MDM Narrative: 27-year-old male with history of anxiety, depression, PTSD, bipolar disorder here with complaints of increasing anxiety over the last few weeks despite taking his home medications. Patient denies SI, HI, auditory or visual hallucinations. No substance use. No physical complaints. No concern for acute ingestion or trauma. Will obtain labs, drug screen, crisis consultation. Differential Diagnosis Differential Diagnoses: The differential diagnosis associated with the presentation includes Anxiety, depression, adjustment disorder Admission/Observation Consideration of admission/observation: Escalation of care including admission/observation considered No suicidal or homicidal ideations. No safety concerns necessitating inpatient psych admission Consult Healthcare Provider Management of the patient was discussed with: Behavioral Health Provider Patient met with care team-plan for discharge that patient recent Lab Data [facility] Lab Attestation statement: I reviewed the patient's lab results. Reviewed labs drawn unremarkable 11/02/22 15:38 11/02/22 15:38 Labs: Lab Results 11/02/22 11/02/22 11/02/22 Range/Units 15:27 15:38 15:38 WBC 8.2 (4.8-10.8) X10*3/uL RBC 5.72 (4.60-5.80) X10*6/uL Hgb 14.7 (14.0-18.0) g/dl Hct 44.5 (42.0-52.0) % MCV 77.8 L (80.0-98.0) fL MCH 25.7 L (27.0-33.0) pg MCHC 33.0 (31.0-36.0) g/dl RDW 13.3 (11.0-16.0) % Plt Count 323 (160-400) X10*3/uL MPV 9.6 (9.4-12.4) fL Immature Gran % (Auto) 0.2 (0.0-0.4) % Neut % (Auto) 76.1 H (45-73) % Lymph % (Auto) 17.8 L (20-40) % [place] % (Auto) 5.6 (2-11) % Eos % (Auto) 0.1 (0-4) % Baso % (Auto) 0.2 (0-2) % Lymph # (Auto) 1.5 (1.2-4.9) X10*3/uL [place] # (Auto) 0.5 (0.1-1.2) X10*3/uL Eos # (Auto) 0.0 (0.0-0.4) X10*3/uL Baso # (Auto) 0.0 (0.0-0.2) X10*3/uL Abs Immat Gran (auto) 0.02 (0.00-0.03) X10*3/uL Absolute Neuts (auto) 6.2 (2.0-8.3) x10*3/uL Absolute Nucleated RBC 0.000 (0.0-0.012) X10*3/uL Nucleated RBC % (auto) 0.0 (0.0-0.2) /100WBC Sodium 141 (135-145) mmol/L Potassium 3.7 (3.3-5.1) mmol/L Chloride 106 (96-108) mmol/L Carbon Dioxide 23 (22-29) mmol/L Anion Gap 16 (12-20) BUN 6 L (9-16) mg/dL Creatinine 0.79 (0.5-1.4) mg/dL Estim Creat Clear Calc 128.9 Estimated GFR > 60 Random Glucose 114 (60-115) mg/dL Calcium 10.5 H (8.4-10.2) mg/dL Total Bilirubin 0.9 (0.0-1.0) mg/dL AST 21 (5-37) U/L ALT 33 (0-40) U/L Alkaline Phosphatase 81 (39-117) U/L Total Protein 8.0 (6.5-8.0) g/dL Albumin 4.5 (3.5-5.0) g/dL Urine Opiates Screen Not Detected (Not Detect) Urine Fentanyl Screen Not Detected (Not Detect) Ur Barbiturates Screen Not Detected (Not Detect) Ur Phencyclidine Scrn Not Detected (Not Detect) Ur Amphetamines Screen POSITIVE H (Not Detect) U Benzodiazepines Scrn Not Detected (Not Detect) Urine Cocaine Screen Not Detected (Not Detect) U Marijuana (THC) Screen Not Detected (Not Detect) Ethyl Alcohol < 10 mg/dL COVID-19 ([facility]) (Negative) COVID-19 Clin Com 11/02/22 Range/Units 15:38 WBC (4.8-10.8) X10*3/uL RBC (4.60-5.80) X10*6/uL Hgb (14.0-18.0) g/dl Hct (42.0-52.0) % MCV (80.0-98.0) fL MCH (27.0-33.0) pg MCHC (31.0-36.0) g/dl RDW (11.0-16.0) % Plt Count (160-400) X10*3/uL MPV (9.4-12.4) fL Immature Gran % (Auto) (0.0-0.4) % Neut % (Auto) (45-73) % Lymph % (Auto) (20-40) % [place] % (Auto) (2-11) % Eos % (Auto) (0-4) % Baso % (Auto) (0-2) % Lymph # (Auto) (1.2-4.9) X10*3/uL [place] # (Auto) (0.1-1.2) X10*3/uL Eos # (Auto) (0.0-0.4) X10*3/uL Baso # (Auto) (0.0-0.2) X10*3/uL Abs Immat Gran (auto) (0.00-0.03) X10*3/uL Absolute Neuts (auto) (2.0-8.3) x10*3/uL Absolute Nucleated RBC (0.0-0.012) X10*3/uL Nucleated RBC % (auto) (0.0-0.2) /100WBC Sodium (135-145) mmol/L Potassium (3.3-5.1) mmol/L Chloride (96-108) mmol/L Carbon Dioxide (22-29) mmol/L Anion Gap (12-20) BUN (9-16) mg/dL Creatinine (0.5-1.4) mg/dL Estim Creat Clear Calc Estimated GFR Random Glucose (60-115) mg/dL Calcium (8.4-10.2) mg/dL Total Bilirubin (0.0-1.0) mg/dL AST (5-37) U/L ALT (0-40) U/L Alkaline Phosphatase (39-117) U/L Total Protein (6.5-8.0) g/dL Albumin (3.5-5.0) g/dL Urine Opiates Screen (Not Detect) Urine Fentanyl Screen (Not Detect) Ur Barbiturates Screen (Not Detect) Ur Phencyclidine Scrn (Not Detect) Ur Amphetamines Screen (Not Detect) U Benzodiazepines Scrn (Not Detect) Urine Cocaine Screen (Not Detect) U Marijuana (THC) Screen (Not Detect) Ethyl Alcohol mg/dL COVID-19 ([facility]) Negative (Negative) COVID-19 Clin Com See Note Independent Historian Clinical information obtained from an independent historian. History obtained from or confirmed by: Spouse Clinical information obtained from his girlfriend and comfort with the patient Discharge Plan Discharge Clinical Impression: Acute anxiety Patient Disposition: Home, Self-Care Instructions: Anxiety (ED) Additional Instructions: Follow-up with your outpatient providers return for safety concernes use the resources provided by the care team Prescriptions: No Action risperidone 2 mg tablet 2 mg PO BEDTIME omeprazole 20 mg capsule,delayed release(DR/EC) 20 mg PO DAILY PRN (Reason: Indigestion) Vyvanse 60 mg capsule 60 mg PO DAILY propranolol 20 mg tablet 20 mg PO BID mirtazapine 30 mg tablet 30 mg PO BEDTIME meloxicam 15 mg tablet 15 mg PO DAILY 30 Days Qty: 30 0RF Referrals: Susan Reynolds MD [Primary Care Provider] - 10 days Interventions: [place]-Suicide Risk Severity Scale Last Done: 11/02/22 15:39 ED Discharge Assessment Last Done: 11/02/22 17:42 Discharge Date/Time: 11/02/22 18:16
--- NOTE | 2022-11-02 15:38 | PC.NURSE ---
pt brought back to pod, changed over and blood drawn
[2022-11-02 15:47] LABS: MANUAL DIFF FLAG NO
[2022-11-02 15:52] LABS: Basophils Percent Auto 0.2 % (0-2); Eosinophils Percent Auto 0.1 % (0-4); Hematocrit 44.5 % (42.0-52.0); Hemoglobin 14.7 g/dl (14.0-18.0); Imm Gran Abs Auto 0.02 X10*3/uL (0.00-0.03); Imm Gran Pct Auto 0.2 % (0.0-0.4); Lymphocytes Absolute Auto 1.5 X10*3/uL (1.2-4.9); Lymphocytes Percent Auto 17.8 % (20-40); Mean Corpuscular Hemoglobin 25.7 pg (27.0-33.0); Mean Corpuscular Volume 77.8 fL (80.0-98.0); Mean Platelet Volume 9.6 fL (9.4-12.4); Monocytes Absolute Auto 0.5 X10*3/uL (0.1-1.2); Monocytes Percent Auto 5.6 % (2-11); Neutrophils Absolute Auto 6.2 x10*3/uL (2.0-8.3); Neutrophils Percent Auto 76.1 % (45-73); Platelet Count 323 X10*3/uL (160-400); Red Blood Count 5.72 X10*6/uL (4.60-5.80); Red Cell Distribution Width 13.3 % (11.0-16.0); White Blood Count 8.2 X10*3/uL (4.8-10.8)
[2022-11-02 16:01] LABS: COVID-19 Test Negative (Negative); IDNOW Serial# 08D9AD1C
[2022-11-02 16:07] LABS: Alanine Aminotransferase 33 U/L (0-40); Albumin Level 4.5 g/dL (3.5-5.0); Alkaline Phosphatase 81 U/L (39-117); Anion Gap 16 (12-20); Aspartate Amino Transferase 21 U/L (5-37); Bilirubin Total 0.9 mg/dL (0.0-1.0); Blood Urea Nitrogen 6 mg/dL (9-16); Calcium 10.5 mg/dL (8.4-10.2); Carbon Dioxide 23 mmol/L (22-29); Chloride 106 mmol/L (96-108); Creatinine Clr Calc Pharmacy 128.9; Estimated Glomerular Filt Rate > 60; Ethanol < 10 mg/dL; Glucose Random 114 mg/dL (60-115); Potassium 3.7 mmol/L (3.3-5.1); Sodium 141 mmol/L (135-145)
[2022-11-02 16:08] LABS: Amphetamine Screen Urine POSITIVE (Not Detect); Barbiturates, Urine Not Detected (Not Detect); Benzodiazepines Screen Urine Not Detected (Not Detect); Cannabinoid Screen Urine Not Detected (Not Detect); Cocaine Screen Urine Not Detected (Not Detect); Fentanyl, urine Not Detected (Not Detect); Opiate Screen Urine Not Detected (Not Detect); Phencyclidine Screen Urine Not Detected (Not Detect)
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
== END 2022-11-02 18:16 | disposition home or self-care (01) ==
PROVIDERS: Nurse Practitioner Family; Emergency Provider Emergency Medicine; PCP Internal Medicine
DX: F41.9 Anxiety disorder, unspecified (principal); F43.10 Post-traumatic stress disorder, unspecified; F31.9 Bipolar disorder, unspecified; Z79.899 Other long term (current) drug therapy
CPT/HCPCS: 36415; 80053; 80307; 85025; 87635; 99284

== ENCOUNTER 2022-11-18 18:02 | Emergency (ER) | payer OTHER, MEDICAID, SELFPAY ==
[2022-11-18 19:13] VITALS: BP 147/92; PULSE 83; RESP 18; TEMP 36.6; O2SAT 98; BMI 25.2
--- NOTE | 2022-11-18 19:13 | ED_ITS ---
HPI - Dental/Oral General Chief complaint: Dental/Oral Stated complaint: jaw,tooth pain Time Seen by Provider: 11/18/22 19:17 Source: patient Mode of arrival: ambulatory Limitations: no limitations History of Present Illness HPI Narrative: 27 yo male presenting for evaluation of left sided wisdom tooth pain worsening for the last 1 week that has been worsening. Has not been able to get in with any dentists despite calling many offices. He reports pain with chewing and laying down. Cannot sleep well due to pain. Has brief relief with ibuprofen. No difficulty opening or closing the jaw. No fevers. No facial swelling. MD Complaint: tooth pain Location: Tooth # (16 and 17 ) Onset (ago): week(s) (1) Duration: constant Severity: severe Relieving factors: NSAIDs Exacerbating factors: chewing Treatment prior to arrival: oral analgesic Related Data Home Medications Medication Instructions Recorded Confirmed lisdexamfetamine 60 mg capsule 60 mg PO DAILY 10/05/21 11/02/22 (Vyvanse) omeprazole 20 mg capsule,delayed 20 mg PO DAILY PRN Indigestion 10/05/21 11/02/22 release risperidone 2 mg tablet 2 mg PO BEDTIME 10/05/21 11/02/22 mirtazapine 30 mg tablet 30 mg PO BEDTIME 09/02/22 11/02/22 propranolol 20 mg tablet 20 mg PO BID 09/02/22 11/02/22 Previous Rx's Medication Instructions Recorded meloxicam 15 mg tablet 15 mg PO DAILY 30 days #30 tabs 09/02/22 amoxicillin 875 mg-potassium 1 tab PO BID #14 tabs 11/18/22 clavulanate 125 mg tablet ibuprofen 600 mg tablet 600 mg PO Q8H PRN pain #20 tabs 11/18/22 tramadol 50 mg tablet 50 mg PO BID PRN severe pain 11/18/22 (scale score 7-10) #6 tabs Allergies Allergy/AdvReac Type Severity Reaction Status Date / Time No Known Allergies Allergy Verified 11/02/22 14:42 Review of Systems Review of Systems: Yes all other systems are reviewed and are negative [facility] Family History Family History Mother Breast cancer Social History Social History Alcohol intake: current Alcohol intake frequency: holidays/special occasions only Patient Tobacco Use Status: Never used Tobacco Advance Directives: No Advance Directives Information Provided: Yes Physical Exam Vital Signs: Vital Signs: Last Vital Signs Temp 97.9 F 11/18/22 19:13 Pulse 83 11/18/22 19:13 Resp 18 11/18/22 19:13 BP 147/92 H 11/18/22 19:13 Pulse Ox 98 11/18/22 19:13 O2 Del Method Room Air 11/18/22 19:13 BMI result Body Mass Index 25.2 Appearance: Alert. Oriented X3. No acute distress. HEENT: normal external inspection, no facial swelling. left lower molar partially broken through the gums with associated gingival swelling and tenderness. no trismus. no broken teeth CVS: Normal heart rate and rhythm. Pulses normal. Respiratory: No respiratory distress. Skin: Skin warm and dry. Normal skin color. Normal skin turgor. No rashes. Extremities: normal inspection x4 Neuro: Oriented X 3. No motor deficit. No sensory deficit. Medical Decision Making Medical Decision Making MDM Narrative: 27 yo male presenting for evaluation of left lower wisdom tooth pain worsening x1 week. Tooth appears impacted. Will treat with pain control and empiric abx. Emergent dental clinics provided. stable for d/c home. Differential Diagnosis Differential Diagnoses: The differential diagnosis associated with the presentation includes impacted wisdom tooth, dental infection, dental trauma, cracked tooth External Record Review External record reviewed: Prior outpatient labs Prescription Management I considered prescription management with: Pain Medication and Antibiotic Critical Care Time Critical Care Time Critical Care Time: No Discharge Plan Discharge Clinical Impression: Toothache Patient Disposition: Home, Self-Care Instructions: Toothache (ED) Additional Instructions: Take the prescribed antibiotics as directed, complete the entire course and do not miss any doses follow up with a dentist as soon as possible If you develop new or worsening symptoms call 911 or come back to the ER for further evaluation. Prescriptions: New amoxicillin-pot clavulanate 875-125 mg tablet 1 tab PO BID Qty: 14 0RF ibuprofen 600 mg tablet 600 mg PO Q8H PRN (Reason: pain) Qty: 20 0RF tramadol 50 mg tablet 50 mg PO BID PRN (Reason: severe pain (scale score 7-10)) Qty: 6 0RF No Action risperidone 2 mg tablet 2 mg PO BEDTIME omeprazole 20 mg capsule,delayed release(DR/EC) 20 mg PO DAILY PRN (Reason: Indigestion) Vyvanse 60 mg capsule 60 mg PO DAILY propranolol 20 mg tablet 20 mg PO BID mirtazapine 30 mg tablet 30 mg PO BEDTIME meloxicam 15 mg tablet 15 mg PO DAILY 30 Days Qty: 30 0RF Interventions: ED Discharge Assessment Last Done: 11/18/22 19:25 Discharge Date/Time: 11/18/22 19:25
== END 2022-11-18 19:25 | disposition home or self-care (01) ==
PROVIDERS: Emergency Provider Emergency Medicine; PCP Internal Medicine
DX: K08.89 Other specified disorders of teeth and supporting structures (principal)
CPT/HCPCS: 99282; 99283

== ENCOUNTER 2023-12-29 08:43 | Emergency (ER) | payer BC, MEDICAID, SELFPAY ==
[2023-12-29] VITALS (7 sets, daily range): BP systolic 94–140; BP diastolic 52–102; PULSE 63–78; RESP 17–18; TEMP 36.4–36.8; O2SAT 96–98; BMI 27.8
--- NOTE | ~2023-12-29 | CT_ITS ---
EXAMINATION: CT ABDOMEN AND PELVIS WITH CONTRAST CLINICAL INFORMATION: Abdominal pain COMPARISON: 09/26/2021 TECHNIQUE: Multidetector volumetric images were obtained from the superior aspect of the liver through the pubic symphysis following administration 85 mL of Omnipaque 350 intravenous contrast. Sagittal and coronal reformatted images were obtained on the technologist's workstation. Oral contrast: No This CT examination was performed using dose optimization techniques as appropriate, variously including the following: *Automated exposure control *Adjustment of mA and/or kV according to patient size (this includes techniques or standardized protocols for targeted exams where dose is matched to indication/reason for exam; i.e. extremities or head) *Use of iterative reconstruction technique DLP: 495 mGy-cm FINDINGS: LUNG BASES: The visualized lung bases are unremarkable. LIVER, GALLBLADDER, AND BILIARY TREE: The liver is low in attenuation with sparing adjacent to the gallbladder compatible with fatty infiltration. No hepatic mass or biliary ductal dilatation is evident.. The gallbladder is unremarkable. PANCREAS: Unremarkable. SPLEEN: Unremarkable. ADRENAL GLANDS: Unremarkable. KIDNEYS AND URETERS: The kidneys are normal in size, shape, and attenuation. No hydronephrosis, hydroureter, or calculi seen. No perinephric stranding. BLADDER: Unremarkable. GASTROINTESTINAL TRACT: The small and large bowel are unremarkable. The appendix is nonvisualized. ABDOMINAL WALL: There appears to be a scar in the right lower quadrant abdominal wall, with mild infiltration of the subcutaneous fat. There also appear to be a few small bowel loops tethered to the scar, in a configuration unchanged since the prior CT, which could indicate underlying adhesions. No obstruction, abscess or collection is evident. LYMPH NODES: Normal. VASCULAR: Unremarkable. PELVIC VISCERA: Unremarkable. OSSEOUS STRUCTURES: Unremarkable. CT/CT abdomen pelvis w IV con IMPRESSION: 1. Scar in the right lower quadrant abdominal wall with tethering of a few small bowel loops, unchanged since the prior CT, perhaps indicating adhesions. No obstruction, abscess or collection. 2. Hepatic steatosis. 3. Nonvisualization of the appendix Fleischner guidelines were followed. Electronically signed by: Steven Tejada MD 12/29/2023 01:03 PM EDT
[2023-12-29 09:33] LABS: MANUAL DIFF FLAG NO
--- NOTE | 2023-12-29 09:33 | ED_ITS ---
HPI - Abdominal Pain General Chief Complaint: Abdominal Pain Stated Complaint: SUDDEN L ABD PAIN PER EMS Time Seen by Provider: 12/29/23 09:09 Source: patient and RN notes reviewed Mode of arrival: ambulatory Limitations: no limitations History of Present Illness ED Provider: Alka Jones PA-C HPI narrative: This is a 28-year-old male , with a past medical history of ?partial colectomy or partial intestinal resection (performed as a child at [facility]), previous who presents emergency department with complaints of left lower quadrant pain which started this morning. Patient states that he awoke this morning and had left lower abdominal pain. Patient states that the pain is waxing and waning in severity. He describes the pain as cramping like. He denies history of similar pain in the past. He has been passing gas. No fevers or chills. No chest pain or shortness for breath. No nausea or vomiting. He is urinating without any difficulty. No dysuria, hematuria or urinary frequency or urgency. Denies any changes in his stool. Last bowel movement was this morning and was normal. No bloody or black stool. No other complaints or concerns at this time. MD elicited complaint: abdominal pain Onset (ago): hour(s) Pain Consistency: intermittent Location: LLQ Severity: moderate Quality: cramping and aching Radiation: none Exacerbating factors: nothing Relieving factors: nothing Related Data Home Medications ?Medication ?Instructions ?Recorded ?Confirmed lisdexamfetamine 60 mg capsule 60 mg PO DAILY 10/05/21 11/02/22 (Vyvanse) omeprazole 20 mg capsule,delayed 20 mg PO DAILY PRN Indigestion 10/05/21 11/02/22 release risperidone 2 mg tablet 2 mg PO BEDTIME 10/05/21 11/02/22 mirtazapine 30 mg tablet 30 mg PO BEDTIME 09/02/22 11/02/22 propranolol 20 mg tablet 20 mg PO BID 09/02/22 11/02/22 Previous Rx's ?Medication ?Instructions ?Recorded meloxicam 15 mg tablet 15 mg PO DAILY 30 days #30 tabs 09/02/22 amoxicillin 875 mg-potassium 1 tab PO BID #14 tabs 11/18/22 clavulanate 125 mg tablet ibuprofen 600 mg tablet 600 mg PO Q8H PRN pain #20 tabs 11/18/22 tramadol 50 mg tablet 50 mg PO BID PRN severe pain 11/18/22 (scale score 7-10) #6 tabs Allergies Allergy/AdvReac Type Severity Reaction Status Date / Time No Known Allergies Allergy Verified 12/29/23 08:53 Review of Systems Review of Systems Yes all other systems are reviewed and are negative Constitutional: Reports as per HPI [facility] Family History Family History Mother Breast cancer Social History Social History Alcohol intake: current Alcohol intake frequency: holidays/special occasions only Patient Tobacco Use Status: Never used Tobacco Smoked in Last 30 Days: No Use of substances other than those prescribed or required for medical reasons: No Advance Directives: No Advance Directives Information Provided: Yes Do you have a plan to hurt others: No Plan Physical Exam ED Vital Signs: Vital Signs - 24 hr 12/29/23 08:52 12/29/23 08:55 12/29/23 10:57 Temperature 97.6 F 97.6 F 98.2 F Pulse Rate 70 70 63 Respiratory Rate 18 18 17 Blood Pressure 122/75 122/75 94/52 L Pulse Oximetry 96 96 97 Oxygen Delivery Method Room Air Room Air Room Air 12/29/23 11:02 12/29/23 12:00 12/29/23 14:17 Temperature 98.3 F 98.0 F Pulse Rate 63 63 64 Respiratory Rate 17 17 Blood Pressure 112/71 108/70 112/75 Pulse Oximetry 97 96 Oxygen Delivery Method Room Air Room Air BMI result Body Mass Index 27.8 Const General: cooperative, comfortable and no acute distress Orientation/consciousness: patient oriented x3 Limitations: no limitations [facility] Head: Yes normal to inspection, Yes normocephalic and Yes atraumatic Ears: hearing grossly normal bilaterally General nose exam: Normal external nose present Face and sinus: Yes normal facial exam Mouth: Normal oral and palatal mucosa present, oropharynx normal and moist mucous membranes Throat: Yes posterior oropharynx normal Eyes General: appearance normal, both eyes and all related structures Eyelids: Yes eyelids normal Conjunctivae: conjunctivae normal Sclerae: sclerae normal Pupils: Equal, round and reactive pupils present EOM: EOMs intact bilaterally Neck Neck: Yes normal visual inspection, Yes full ROM and Yes no lymphadenopathy Lymphatic: no lymphadenopathy noted Chest Chest palpation & inspection: normal inspection of the chest Resp Effort & Inspection: normal respiratory effort and able to speak in complete sentences Auscultation: clear to auscultation bilaterally, no crackles, no rales, no rhonchi and no wheezes Cardio Rate: regular rate Rhythm: regular rhythm Heart sounds: S1 normal heart sound present and S2 normal heart sound present GI Other: Left lower quadrant tenderness palpation, no rebound or guarding. Abdomen is soft, normoactive bowel sounds present. Skin General skin exam: no rashes or lesions noted Trauma: no lacerations or abrasions Wounds: no wounds Neuro General: patient oriented x3 and moves all extremities Cranial nerves: Yes Equal, round and reactive pupils present Extrem General: Yes normal to inspection Right upper extremity: normal to inspection Left upper extremity: normal to inspection Right lower extremity: normal to inspection Left lower extremity: normal to inspection Course Reevaluation(s) Reevaluation #1: CT scan revealing scar in the right lower quadrant abdominal wall with tethering of a small few bowel loops, unchanged since prior CT scan. Perhaps indicating adhesions, no obstruction, abscess or collection. He does have evidence of fatty liver. Discussed findings with patient. He will follow-up with his PCP. I also advised patient to follow-up with GI specialist as needed. He had surgery as a child and [facility]. Patient given strict return precautions. Patient stable for discharge. Time: 13:59 Medical Decision Making Medical Decision Making MDM Narrative: This is a 28-year-old male who presents emergency department with complaints of left lower quadrant pain which started this morning. On arrival, vital signs within normal limits. He is speaking full sentences under no acute distress. Abdomen is soft with mild tenderness palpation in the left lower quadrant. No rebound or guarding. Patient eating without difficulty. Given history of bowel resection as a child, concern for SBO, or any intra-abdominal process. Given this, will obtain CT abdomen and labs to rule out any acute pathology. Differential Diagnosis Differential Diagnoses: The differential diagnosis associated with the presentation includes SBO, diverticulitis, diverticulosis, gastroenteritis, appendicitis Lab Data MDM Lab Attestation statement: I reviewed the patient's lab results. No leukocytosis, stable H&H, chemistry revealing elevated liver transaminases, ALT at 71. Hyperglycemic at 126, urinalysis revealing no evidence of infection 12/29/23 09:25 12/29/23 09:25 Labs: Lab Results 12/29/23 Range/Units 09:25 WBC 7.1 (4.8-10.8) X10*3/uL RBC 5.56 (4.60-5.80) X10*6/uL Hgb 14.8 (14.0-18.0) g/dl Hct 43.2 (42.0-52.0) % MCV 77.7 L (80.0-98.0) fL MCH 26.6 L (27.0-33.0) pg MCHC 34.3 (31.0-36.0) g/dl RDW 13.2 (11.0-16.0) % Plt Count 306 (160-400) X10*3/uL MPV 9.5 (9.4-12.4) fL Immature Gran % (Auto) 0.3 (0.0-0.4) % Neut % (Auto) 64.2 (45-73) % Lymph % (Auto) 25.6 (20-40) % Toombs % (Auto) 6.5 (2-11) % Eos % (Auto) 3.0 (0-4) % Baso % (Auto) 0.4 (0-2) % Lymph # (Auto) 1.8 (1.2-4.9) X10*3/uL Toombs # (Auto) 0.5 (0.1-1.2) X10*3/uL Eos # (Auto) 0.2 (0.0-0.4) X10*3/uL Baso # (Auto) 0.0 (0.0-0.2) X10*3/uL Abs Immat Gran (auto) 0.02 (0.00-0.03) X10*3/uL Absolute Neuts (auto) 4.5 (2.0-8.3) x10*3/uL Absolute Nucleated RBC 0.000 (0.0-0.012) X10*3/uL Nucleated RBC % (auto) 0.0 (0.0-0.2) /100WBC Sodium 140 (135-145) mmol/L Potassium 4.0 (3.3-5.1) mmol/L Chloride 107 (96-108) mmol/L Carbon Dioxide 25 (22-29) mmol/L Anion Gap 12 (12-20) BUN 7 L (9-16) mg/dL Creatinine 0.84 (0.5-1.4) mg/dL Estim Creat Clear Calc 135.4 Estimated GFR > 60 Random Glucose 126 H (60-115) mg/dL Calcium 10.2 (8.4-10.2) mg/dL Total Bilirubin 0.6 (0.0-1.0) mg/dL AST 30 (5-37) U/L ALT 71 H (0-40) U/L Alkaline Phosphatase 80 (39-117) U/L Total Protein 7.4 (6.5-8.0) g/dL Albumin 4.4 (3.5-5.0) g/dL Urine Color Yellow Urine Appearance Clear Urine pH 7.0 (5.0-9.0) Ur Specific Hinkle <= 1.005 (1.005-1.025) Urine Protein Negative (Neg-Trace) mg/dL Urine Glucose (UA) Negative (Negative) mg/dL Urine Ketones Negative (Negative) mg/dL Urine Blood Negative (Negative) Urine Nitrite Negative (Negative) Ur Leukocyte Esterase Negative (Negative) Urine RBC 0-2 (0-2) /HPF Urine WBC 0-5 (0-5) /HPF Ur Squamous Epith Cells 0-2 (0-2) /HPF Urine Bacteria None Seen (None Seen) Hyaline Casts 0-2 (0-2) /LPF Radiology Impression Discussion of test interpretation with radiology: I have reviewed the radiologist's reading. Radiologist Impression: CT/CT abdomen pelvis w IV con IMPRESSION: 1. Scar in the right lower quadrant abdominal wall with tethering of a few small bowel loops, unchanged since the prior CT, perhaps indicating adhesions. No obstruction, abscess or collection. 2. Hepatic steatosis. 3. Nonvisualization of the appendix Fleischner guidelines were followed. Electronically signed by: Steven Tejada MD 12/29/2023 01:03 PM EDT Dictated By: Steven Tejada MD Signed By: <Electronically signed Medications Administered Discontinued Medications Generic Name Dose Route Start Last Admin Trade Name Freq PRN Reason Stop Dose Admin Iohexol 100 ml 12/29/23 12:26 12/29/23 12:26 Iohexol 350 Mg/Ml 100 Ml Infus..Btl IV 12/29/23 12:27 85 ml ONCE ONE Administration Discharge Plan Discharge Clinical Impression: Abdominal pain Patient Disposition: Home, Self-Care Instructions: Acute Abdominal Pain (ED) Additional Instructions: You were seen in the emergency department due to abdominal pain. Y your labs did show slight elevation in your liver enzymes, please have repeat blood work in 2 weeks you have your primary care office. Your urine does not appear to be infected. Your CT scan does not show any reason for your abdominal pain. You do have scarring in your abdomen from your surgery as a child. You can follow-up with the GI specialist if you wish. See referral for details. Please drink plenty of fluids get plenty of rest. If any new or worsening If any new or worsening symptoms occur including but not limited to worsening pain, nausea, vomiting, fevers, chest pain, shortness for breath, please seek emergent care. Prescriptions: No Action amoxicillin-pot clavulanate 875-125 mg tablet 1 tab PO BID Qty: 14 0RF ibuprofen 600 mg tablet 600 mg PO Q8H PRN (Reason: pain) Qty: 20 0RF tramadol 50 mg tablet 50 mg PO BID PRN (Reason: severe pain (scale score 7-10)) Qty: 6 0RF risperidone 2 mg tablet 2 mg PO BEDTIME omeprazole 20 mg capsule,delayed release(DR/EC) 20 mg PO DAILY PRN (Reason: Indigestion) Vyvanse 60 mg capsule 60 mg PO DAILY propranolol 20 mg tablet 20 mg PO BID mirtazapine 30 mg tablet 30 mg PO BEDTIME meloxicam 15 mg tablet 15 mg PO DAILY 30 Days Qty: 30 0RF Referrals: [facility] [place] General Surgeons [Provider Group] Stand Alone Forms: Work/School Release Interventions: ED Discharge Assessment Last Done: 12/29/23 14:17 Discharge Date/Time: 12/29/23 14:17 Print Language: Belizean
[2023-12-29 09:37] LABS: Basophils Percent Auto 0.4 % (0-2); Eosinophils Absolute Auto 0.2 X10*3/uL (0.0-0.4); Hematocrit 43.2 % (42.0-52.0); Hemoglobin 14.8 g/dl (14.0-18.0); Imm Gran Abs Auto 0.02 X10*3/uL (0.00-0.03); Imm Gran Pct Auto 0.3 % (0.0-0.4); Lymphocytes Absolute Auto 1.8 X10*3/uL (1.2-4.9); Lymphocytes Percent Auto 25.6 % (20-40); Mean Corpuscular HGB Conc 34.3 g/dl (31.0-36.0); Mean Corpuscular Hemoglobin 26.6 pg (27.0-33.0); Mean Corpuscular Volume 77.7 fL (80.0-98.0); Mean Platelet Volume 9.5 fL (9.4-12.4); Monocytes Absolute Auto 0.5 X10*3/uL (0.1-1.2); Monocytes Percent Auto 6.5 % (2-11); Neutrophils Absolute Auto 4.5 x10*3/uL (2.0-8.3); Neutrophils Percent Auto 64.2 % (45-73); Platelet Count 306 X10*3/uL (160-400); Red Blood Count 5.56 X10*6/uL (4.60-5.80); Red Cell Distribution Width 13.2 % (11.0-16.0); White Blood Count 7.1 X10*3/uL (4.8-10.8)
[2023-12-29 09:38] LABS: Appearance Urine Clear; Color Urine Yellow; Glucose Urine UA Negative (Negative); Leukocyte Esterase Urine Negative (Negative); Nitrite Urine Negative (Negative); Specific Gravity - Urine <= 1.005 (1.005-1.025); Urine Blood Negative (Negative); Urine Ketones Negative (Negative); Urine Protein Negative (Neg-Trace)
[2023-12-29 09:41] LABS: Bacteria Urine None Seen (None Seen); Hyaline Casts Urine 0-2 /LPF (0-2); RBC Urine 0-2 /HPF (0-2); Squamous Epithelial Cell Urine 0-2 /HPF (0-2); WBC Urine 0-5 /HPF (0-5)
[2023-12-29 10:05] LABS: Alanine Aminotransferase 71 U/L (0-40); Albumin Level 4.4 g/dL (3.5-5.0); Alkaline Phosphatase 80 U/L (39-117); Anion Gap 12 (12-20); Aspartate Amino Transferase 30 U/L (5-37); Bilirubin Total 0.6 mg/dL (0.0-1.0); Blood Urea Nitrogen 7 mg/dL (9-16); Calcium 10.2 mg/dL (8.4-10.2); Carbon Dioxide 25 mmol/L (22-29); Chloride 107 mmol/L (96-108); Creatinine Clr Calc Pharmacy 135.4; Estimated Glomerular Filt Rate > 60; Glucose Random 126 mg/dL (60-115); Sodium 140 mmol/L (135-145); Total Protein 7.4 g/dL (6.5-8.0)
--- NOTE | 2023-12-29 12:12 | PC.NURSE ---
20G inserted to LAC. Tolerated well. Good blood return.
[2023-12-29] MEDS: iohexoL 350 MG/ML 100 ML INFUS..BTL IV (12:26)
== END 2023-12-29 14:17 | disposition home or self-care (01) ==
PROVIDERS: Emergency Provider Emergency Medicine; PCP Internal Medicine
DX: R10.32 Left lower quadrant pain (principal)
CPT/HCPCS: 36415; 74177; 80053; 81001; 85025; 99284; Q9967

== ENCOUNTER 2024-04-13 13:33 | Emergency (ER) | payer BC, SELFPAY ==
--- NOTE | 2024-04-13 13:36 | ECG_ITS ---
Test Reason : CP Blood Pressure : */* mmHG Vent. Rate : 63 BPM Atrial Rate : 63 BPM P-R Int : 164 ms QRS Dur : 100 ms QT Int : 400 ms P-R-T Axes : 26 55 34 degrees QTcB Int : 409 ms Normal sinus rhythm Normal ECG When compared with ECG of 12-Jun-2022 10:45, No significant change was found Referred By: Generic ED Physician Electronically Signed By: Reese Hassan
[2024-04-13 13:46] VITALS: BP 120/82; PULSE 76; O2SAT 98
--- NOTE | 2024-04-13 13:47 | ED.GENADULT ---
HPI - General Adult General Stated complaint: ABD PAIN,CHEST PRESSURE,ANXIETY, FROM WORK PER EMS Related Data Home Medications ?Medication ?Instructions ?Recorded ?Confirmed lisdexamfetamine 60 mg capsule 60 mg PO DAILY 10/05/21 11/02/22 (Vyvanse) omeprazole 20 mg capsule,delayed 20 mg PO DAILY PRN Indigestion 10/05/21 11/02/22 release risperidone 2 mg tablet 2 mg PO BEDTIME 10/05/21 11/02/22 mirtazapine 30 mg tablet 30 mg PO BEDTIME 09/02/22 11/02/22 propranolol 20 mg tablet 20 mg PO BID 09/02/22 11/02/22 Previous Rx's ?Medication ?Instructions ?Recorded meloxicam 15 mg tablet 15 mg PO DAILY 30 days #30 tabs 09/02/22 amoxicillin 875 mg-potassium 1 tab PO BID #14 tabs 11/18/22 clavulanate 125 mg tablet ibuprofen 600 mg tablet 600 mg PO Q8H PRN pain #20 tabs 11/18/22 tramadol 50 mg tablet 50 mg PO BID PRN severe pain 11/18/22 (scale score 7-10) #6 tabs Allergies Allergy/AdvReac Type Severity Reaction Status Date / Time No Known Allergies Allergy Verified 12/29/23 08:53 [facility] Family History Family History Mother Breast cancer Social History Social History Alcohol intake: current Alcohol intake frequency: holidays/special occasions only Patient Tobacco Use Status: Never used Tobacco Course Course Course Narrative: This is a Rapid Medical Examination (RME) performed by Sly Man PA-C in triage. Full HPI, ROS, assessment and treatment plan per primary provider in the Main ED. While sitting at work, began to have difficulty breathing, chest pain with abdominal pain. Plan: Discharge Plan Discharge Prescriptions: No Action amoxicillin-pot clavulanate 875-125 mg tablet 1 tab PO BID Qty: 14 0RF ibuprofen 600 mg tablet 600 mg PO Q8H PRN (Reason: pain) Qty: 20 0RF tramadol 50 mg tablet 50 mg PO BID PRN (Reason: severe pain (scale score 7-10)) Qty: 6 0RF risperidone 2 mg tablet 2 mg PO BEDTIME omeprazole 20 mg capsule,delayed release(DR/EC) 20 mg PO DAILY PRN (Reason: Indigestion) Vyvanse 60 mg capsule 60 mg PO DAILY propranolol 20 mg tablet 20 mg PO BID mirtazapine 30 mg tablet 30 mg PO BEDTIME meloxicam 15 mg tablet 15 mg PO DAILY 30 Days Qty: 30 0RF Print Language: Jordanian
== END 2024-04-13 17:03 | disposition left against medical advice (07) ==
PROVIDERS: Emergency Provider Emergency Medicine; PCP Internal Medicine
DX: R10.2 Pelvic and perineal pain (principal); R07.89 Other chest pain
CPT/HCPCS: 93005; 99281; 99282

== ENCOUNTER → 2024-04-13 13:36 | Outpatient (BNV) | payer BC, SELFPAY | PROVIDERS: Emergency Provider Emergency Medicine; PCP Internal Medicine; Visit Provider Internal Medicine Cardiovascular Disease | DX: R07.9 Chest pain, unspecified (principal) | CPT/HCPCS: 93010 ==

== ENCOUNTER 2024-06-11 06:26 | Emergency (ER) | payer BC, SELFPAY ==
[2024-06-11 06:32] VITALS: BP 137/63; PULSE 77; RESP 16; TEMP 36.7; O2SAT 94; BMI 29.2
[2024-06-11 07:03] LABS: MANUAL DIFF FLAG NO
[2024-06-11 07:04] LABS: Basophils Percent Auto 0.6 % (0-2); Eosinophils Absolute Auto 0.2 X10*3/uL (0.0-0.4); Eosinophils Percent Auto 3.6 % (0-4); Hematocrit 44.1 % (42.0-52.0); Imm Gran Abs Auto 0.02 X10*3/uL (0.00-0.03); Imm Gran Pct Auto 0.3 % (0.0-0.4); Lymphocytes Absolute Auto 1.8 X10*3/uL (1.2-4.9); Lymphocytes Percent Auto 28.6 % (20-40); Mean Corpuscular Hemoglobin 26.1 pg (27.0-33.0); Mean Corpuscular Volume 76.8 fL (80.0-98.0); Mean Platelet Volume 9.6 fL (9.4-12.4); Monocytes Absolute Auto 0.5 X10*3/uL (0.1-1.2); Monocytes Percent Auto 7.5 % (2-11); Neutrophils Absolute Auto 3.8 x10*3/uL (2.0-8.3); Neutrophils Percent Auto 59.4 % (45-73); Platelet Count 302 X10*3/uL (160-400); Red Blood Count 5.74 X10*6/uL (4.60-5.80); Red Cell Distribution Width 13.5 % (11.0-16.0); White Blood Count 6.4 X10*3/uL (4.8-10.8)
[2024-06-11 07:10] LABS: Appearance Urine Clear; Color Urine Yellow; Glucose Urine UA Negative (Negative); Leukocyte Esterase Urine Negative (Negative); Nitrite Urine Negative (Negative); PH 5.5 (5.0-9.0); Specific Gravity - Urine >= 1.030 (1.005-1.025); Urine Blood Negative (Negative); Urine Ketones Negative (Negative); Urine Protein Negative (Neg-Trace)
[2024-06-11 07:22] LABS: Alanine Aminotransferase 74 U/L (0-40); Albumin Level 4.3 g/dL (3.5-5.0); Alkaline Phosphatase 83 U/L (39-117); Anion Gap 12 (12-20); Aspartate Amino Transferase 34 U/L (5-37); Blood Urea Nitrogen 12 mg/dL (9-16); Calcium 9.7 mg/dL (8.4-10.2); Carbon Dioxide 22 mmol/L (22-29); Chloride 110 mmol/L (96-108); Estimated Glomerular Filt Rate > 60; Glucose Random 176 mg/dL (60-115); Lipase 24 U/L (8-78); Potassium 3.8 mmol/L (3.3-5.1); Sodium 140 mmol/L (135-145); Total Protein 7.4 g/dL (6.5-8.0)
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
[2024-06-11 08:10] VITALS: BP 137/63; PULSE 77; RESP 16; TEMP 36.7; O2SAT 94
[2024-06-11 08:14] LABS: C Reactive Protein 0.42 mg/dL (< or = 0.50)
== END 2024-06-11 08:20 | disposition home or self-care (01) ==
PROVIDERS: Emergency Provider Emergency Medicine; PCP Internal Medicine
DX: R10.9 Unspecified abdominal pain (principal); Z79.899 Other long term (current) drug therapy
CPT/HCPCS: 36415; 80053; 81003; 83690; 85025; 86140; 99282; 99283

== ENCOUNTER 2024-10-25 06:39 | Emergency (ER) | payer BC, SELFPAY ==
[2024-10-25 06:43] VITALS: BP 132/79; PULSE 93; RESP 16; TEMP 36.2; O2SAT 98; BMI 27.4
--- NOTE | 2024-10-25 07:49 | ED.GENADULT ---
HPI - General Adult General Chief complaint: Extremity Problem Stated complaint: R foot pain radiates up leg to back Time Seen by Provider: 10/25/24 07:06 Source: patient Mode of arrival: ambulatory Limitations: no limitations History of Present Illness ED Provider: Miguel Grimes PA-C HPI narrative: A 29-year-old male without significant medical history presents to the ED due to 5 days of right foot pain. Patient states he has a history of flat feet and has chronic pain in the arch of his right foot. 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 Patient states he also began experiencing pain in his right lumbar back that is radiating down the back of the posterior thigh. Patient has not taken any medication for pain management. Denies saddle paresthesia, bowel/bladder incontinence, chest pain, shortness of breath, abdominal pain, vomiting, difficulty walking. MD complaint: R foot pain Related Data Home Medications ?Medication ?Instructions ?Recorded ?Confirmed lisdexamfetamine 60 mg capsule 60 mg PO DAILY 10/05/21 11/02/22 (Vyvanse) omeprazole 20 mg capsule,delayed 20 mg PO DAILY PRN Indigestion 10/05/21 11/02/22 release risperidone 2 mg tablet 2 mg PO BEDTIME 10/05/21 11/02/22 mirtazapine 30 mg tablet 30 mg PO BEDTIME 09/02/22 11/02/22 propranolol 20 mg tablet 20 mg PO BID 09/02/22 11/02/22 Previous Rx's ?Medication ?Instructions ?Recorded meloxicam 15 mg tablet 15 mg PO DAILY 30 days #30 tabs 09/02/22 amoxicillin 875 mg-potassium 1 tab PO BID #14 tabs 11/18/22 clavulanate 125 mg tablet ibuprofen 600 mg tablet 600 mg PO Q8H PRN pain #20 tabs 11/18/22 tramadol 50 mg tablet 50 mg PO BID PRN severe pain 11/18/22 (scale score 7-10) #6 tabs acetaminophen 500 mg capsule 1,000 mg (2 x 500 mg) PO Q8H PRN 06/11/24 fever or pain #14 caps ibuprofen 400 mg tablet 400 mg PO Q6H PRN pain #14 tabs 06/11/24 prednisone 20 mg tablet 20 mg PO BID 5 days #10 tabs 10/25/24 Allergies Allergy/AdvReac Type Severity Reaction Status Date / Time No Known Allergies Allergy Verified 10/25/24 06:44 Review of Systems Review of Systems: CONST: Negative for fever, body aches and chills. HENT: Negative for neck pain/stiffness, headache, congestion, sore throat, swelling. EYES: Negative for discharge/pain or vision changes. RESP: Negative for cough/hemoptysis and shortness of breath. CV: Negative chest pain, difficulty breathing, palpitations. ABD: Negative pain, nausea, vomiting. : Negative increase frequency, dysuria, blood in urine or stool. MUSC: Negative for muscle aches, edema. POS arch pain of R foot, R side lumbar back pain radiating down posterior thigh. SKIN: Negative rash, lesions/sores. NEURO: Negative headache, dizziness, weakness. Yes all other systems are reviewed and are negative PMFSH Past Medical History Attestation statement: The following information was validated with the patient. Source: old records reviewed and nursing notes reviewed Family History Family History Mother Breast cancer Social History Social History Alcohol intake: current Alcohol intake frequency: holidays/special occasions only Patient Tobacco Use Status: Never used Tobacco Advance Directives: No Advance Directives Information Provided: No Do you have a plan to hurt others: No Plan Physical Exam ED Vital Signs: Vital Signs - 24 hr 10/25/24 06:43 Temperature 97.1 F Pulse Rate 93 Respiratory Rate 16 Blood Pressure 132/79 Pulse Oximetry 98 Oxygen Delivery Method Room Air BMI result Body Mass Index 27.4 GENERAL APPEARANCE: ?AxOx4, generally well-appearing, no acute distress. HEENT: ?NC, AT. MMM. EOMI, clear conjunctiva, oropharynx clear. NECK: ?Supple without lymphadenopathy.? No stiffness or restricted ROM. HEART:? Normal rate and regular rhythm, normal S1/S2, no m/r/g LUNGS:? CTAB, moving air well. No crackles or wheezes are heard. BACK: No CVAT, no obvious deformity. TTP of right-sided lumbar paraspinal muscles, and SI joint, no midline spinal tenderness, no bony step-offs or anatomical abnormalities observed or palpated ROM intact of extension and flexion EXTREMITIES: ?Without cyanosis, clubbing or edema. R foot TTP of lateral arch, without edema, no erythema DP pulses 2+ bilaterally, popliteal pulses 2+ bilaterally, ROM of ankle intact, SILT, appropriate capillary refill time, compartments soft NEUROLOGICAL: ?Grossly nonfocal. Alert and oriented, moving all 4 extremities. Observed to ambulate with normal gait. Skin: ?Warm and dry without any rash. Medical Decision Making Medical Decision Making [facility] Narrative: A 29-year-old male without significant medical history presents to the ED due to 5 days of right foot pain. Patient states he has a history of flat feet and has chronic pain in the arch of his right foot. 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 Patient states he also began experiencing pain in his right lumbar back that is radiating down the back of the posterior thigh. Patient has not taken any medication for pain management. Denies saddle paresthesia, bowel/bladder incontinence, denies injury, trauma to foot or back, no IVDA VS on initial observation-BP 132/79, pulse rate 93, respiratory rate of 16, afebrile with oral temperature of 97.1?, O2 saturation 98% on room air. Patient is well-appearing, in no acute distress, nontoxic appearing. On physical exam patient with R foot TTP of lateral arch, without edema, no erythema DP pulses 2+ bilaterally, popliteal pulses 2+ bilaterally, ROM of ankle intact, SILT, appropriate capillary refill time, compartments soft, TTP of right-sided lumbar paraspinal muscles, and SI joint, no midline spinal tenderness, no bony step-offs or anatomical abnormalities observed or palpated ROM intact of extension and flexion Patient without history of IVDA, no saddle paresthesia, bowel/bladder incontinence- lower suspicion for SEA, cauda equina R foot with 2+ DP pulses, full ROM, no tenderness to palpation of bony structures, no edema, no erythema, no injury or trauma to foot, patient able to ambulate and bear weight, I do not believe imaging is needed at this time- less likely fracture At this time I believe patient with lumbar radiculopathy due to sciatica, with possible plantar fasciitis of the right foot due to flat foot that has been exacerbated by intense physical work at the patient's job. I counseled patient to follow up with his primary care doctor for possible referral to Podiatry for further evaluation. I counseled patient on using orthotics and inserts to help cushion in the arch of his foot. Patient being medicated with 30 mg IM ketorolac, 975 mg of acetaminophen, patient has not taken any medications for pain management. I will discharge with 5 day course of 40mg prednisone for radicular symptoms. Differential Diagnosis Differential Diagnoses: The differential diagnosis associated with the presentation includes SEA Cauda equina Foot fracture Foot strain Admission/Observation Consideration of admission/observation: Escalation of care including admission/observation considered External Record Review External record reviewed: Inpatient record, Office record and Outpatient record Discharge Plan Discharge Clinical Impression: Lumbar radiculopathy, Arch pain of right foot Patient Disposition: Home, Self-Care Instructions: Lumbar Radiculopathy (ED), Epidural Steroid Injection (DC) Additional Instructions: You were evaluated in the ED today due to right foot pain, right lumbar back pain. Your physical exam was reassuring there was no significant pitting or swelling of the right leg or foot, your pulses were intact on your foot, and behind the knee, there was full range of motion on the right ankle. You had some tenderness along the the muscles of your lower spine, and over the sacroiliac joint, this is usually consistent with something called sciatica which is irritation of your sciatic nerve. You are being prescribed a 5 day course of prednisone for inflammation. To manage pain at home alternate 500 mg of Tylenol, 400 mg of ibuprofen every 6 hours. Do gentle stretching of the back, heating pads can provide relief of lumbar back pain. I recommend you follow up with your primary care doctor for further evaluation management of arch pain you may have something called plantar fasciitis which is inflammation irritation of the ligaments and tendons of your foot. Please return to the emergency department if you experience worsening back pain, worsening right foot pain, tingling of your inner thighs, episodes of incontinence of urine or bowel, decreased sensation of your right foot, color changes swelling of your right foot, or any other new/worsening/concerning symptoms. Prescriptions: New prednisone 20 mg tablet 20 mg PO BID 5 Days Qty: 10 0RF No Action amoxicillin-pot clavulanate 875-125 mg tablet 1 tab PO BID Qty: 14 0RF ibuprofen 600 mg tablet 600 mg PO Q8H PRN (Reason: pain) Qty: 20 0RF tramadol 50 mg tablet 50 mg PO BID PRN (Reason: severe pain (scale score 7-10)) Qty: 6 0RF ibuprofen 400 mg tablet 400 mg PO Q6H PRN (Reason: pain) Qty: 14 0RF acetaminophen 500 mg capsule 1,000 mg PO Q8H PRN (Reason: fever or pain) Qty: 14 0RF risperidone 2 mg tablet 2 mg PO BEDTIME omeprazole 20 mg capsule,delayed release(DR/EC) 20 mg PO DAILY PRN (Reason: Indigestion) Vyvanse 60 mg capsule 60 mg PO DAILY propranolol 20 mg tablet 20 mg PO BID mirtazapine 30 mg tablet 30 mg PO BEDTIME meloxicam 15 mg tablet 15 mg PO DAILY 30 Days Qty: 30 0RF Print Language: Pakistani
[2024-10-25 08:52] VITALS: BP 132/79; PULSE 93; RESP 16; TEMP 36.2; O2SAT 98
== END 2024-10-25 08:52 | disposition home or self-care (01) ==
PROVIDERS: Emergency Provider Emergency Medicine; PCP Internal Medicine
DX: M79.671 Pain in right foot (principal); M54.16 Radiculopathy, lumbar region; M54.30 Sciatica, unspecified side
CPT/HCPCS: 96372; 99283; 99284; J1885

== ENCOUNTER 2024-11-14 09:27 | Emergency (ER) | payer BC, SELFPAY ==
--- NOTE | ~2024-11-14 | XR_ITS ---
CLINICAL HISTORY: cough Chest radiographs, 2 views Comparison: CR/SR - XR CHEST 2 VIEWS - 12/06/21 11:06 EDT Findings: The cardiomediastinal silhouette is not enlarged. Pulmonary vascularity is unremarkable. No focal consolidation or effusion. No pneumothorax. IMPRESSION: No acute cardiopulmonary findings. This document has been electronically signed by: Laureano Bergeron DO on 11/14/2024 11:16:45
[2024-11-14 09:29] VITALS: BP 145/79; PULSE 95; RESP 16; TEMP 36.9; O2SAT 97; BMI 27.4
--- NOTE | 2024-11-14 09:34 | ED_ITS ---
HPI - General Adult General Chief complaint: Upper Respiratory Symptoms Stated complaint: coughing alot and pain on side of abd Time Seen by Provider: 11/14/24 09:33 Source: patient Mode of arrival: ambulatory Limitations: no limitations History of Present Illness ED Provider: Glenna Rivera PA-C HPI narrative: Patient is a 29 year old assigned male at presenting to the emergency de partment with concerns of worsening cough and feeling generally unwell. Patient reports flu-like symptoms that started 11/09/24 which have mostly resolved except for nasal congestion and cough. Patient reports productive cough with yellow mucous that has been worsening. Patient reports upper back pain and chest pain when he coughs. Patient denies fever, chills, headache, dizziness, palpitations, abdominal pain, nausea, vomiting, diarrhea, or any other symptoms at this time. Onset (ago): day(s) (5 days) Related Data Home Medications ?Medication ?Instructions ?Recorded ?Confirmed lisdexamfetamine 60 mg capsule 60 mg PO DAILY 10/05/21 11/02/22 (Vyvanse) omeprazole 20 mg capsule,delayed 20 mg PO DAILY PRN In digestion 10/05/21 11/02/22 release risperidone 2 mg tablet 2 mg PO BEDTIME 10/05/21 mirtazapine 30 mg tablet 30 mg PO BEDTIME 09/02/22 propranolol 20 mg tablet 20 mg PO BID 09/02/22 Previous Rx's ?Medication ?Instructions ?Recorded meloxicam 15 mg tablet 15 mg PO DAILY 30 days #30 t abs 09/02/22 amoxicillin 875 mg-potassium 1 tab PO BID #14 tabs 01/30 clavulanate 125 mg tablet ibuprofen 600 mg tablet 600 mg PO Q8H PRN pain #20 t abs 11/18/22 tramadol 50 mg tablet 50 mg PO BID PRN severe pain 11/18/22 (scale score 7-10) #6 tabs acetaminophen 500 mg capsule 1,000 mg (2 x 500 mg) PO Q8H PRN 06/11/24 fever or pain #14 caps ibuprofen 400 mg tablet 400 mg PO Q6H PRN pain #14 t abs 06/11/24 prednisone 20 mg tablet 20 mg PO BID 5 days #10 tabs 10/25/24 benzonatate 100 mg capsule 100 mg PO BID PRN cough 7 d ays #14 11/14/24 caps doxycycline hyclate 100 mg tablet 100 mg PO BID 7 days #14 tabs 11/14/24 Allergies Allergy/AdvReac Type Severity Reaction Status Date / Time No Known Allergies Allergy Verified 11/14/24 09:31 Review of Systems Constitutional: Constitutional: Reports as per HPI Eyes: Eyes: Reports as per HPI ENT: Reports as per HPI Cardiovascular: Cardiovascular: Reports as per HPI Respiratory: Respiratory: Reports as per HPI Gastrointestinal: Gastrointestinal: Reports as per HPI Genitourinary: Genitourinary: Reports as per HPI Musculoskeletal: Musculoskeletal: Reports as per HPI Integumentary/Breasts: Skin/Breast: Reports as per HPI Neurologic: Reports as per HPI Psychiatric: Psychiatric: Reports as per HPI Endocrine: Endocrine: Reports as per HPI Hematologic/Lymphatic: Hematologic/Lymphatic: Reports as per HPI Allergic/Immunologic: Allergic/Immunologic: Reports as per HPI [facility] Past Medical History Attestation statement: The following information was validated with the patient. Source: old records reviewed and nursing notes reviewed Family History Family History Mother Breast cancer Social History Social History Alcohol intake: current Alcohol intake frequency: holidays/special occasions only Patient Tobacco Use Status: Never used Tobacco Advance Directives: No Advance Directives Information Provided: Yes Do you have a plan to hurt others: No Plan Physical Exam ED Vital Signs: Vital Signs - 24 hr 11/14/24 09:29 11/14/24 11:17 Temperature 98.5 F 98.5 F Pulse Rate 95 95 Respiratory Rate 16 16 Blood Pressure 145/79 H 145/79 H Pulse Oximetry 97 97 Oxygen Delivery Method Room Air Room Air BMI result Body Mass Index 27.4 Const General: cooperative, no acute distress, alert and awake Nutritional Appearance: well nourished Orientation/consciousness: patient oriented x3 HENMT Head: Yes normal to inspection and Yes atraumatic Ears: hearing grossly normal bilaterally and external ears normal General nose exam: Normal external nose present, no nasal discharge noted and no epistaxis Face and sinus: Yes normal facial exam, No abrasion and No laceration Mouth: Normal oral and palatal mucosa present, no drooling and no muffled voice Eyes General: appearance normal, both eyes and all related structures Periorbital: periorbital findings normal Eyelids: Yes eyelids normal Conjunctivae: conjunctivae normal Pupils: Equal, round and reactive pupils present EOM: EOMs intact bilaterally Neck Neck: Yes normal visual inspection and Yes full ROM Resp Effort & Inspection: normal respiratory effort, able to speak in complete sentences and Actively coughing Auscultation: wheezes Neuro General: patient oriented x3, moves all extremities and CN's II-XI intact bilaterally Cranial nerves: Yes Equal, round and reactive pupils present Cognition (Neuro): normal cognition Extrem General: Yes normal to inspection, Yes full ROM and Yes capillary refill normal Psych Appearance: grossly normal Mental Status: mental status grossly normal Affect: normal affect Attitude: cooperative Thought process: Normal thought process present Thought content: Normal thought content present Insight: Good insight present (Psych) Medical Decision Making Medical Decision Making MDM Narrative: Patient is a 29 year old assigned male at presenting to the emergency department with concerns of worsening cough and feeling generally unwell. Patient's physical exam was unremarkable. Patient's chest x-ray showed no acute process. Patient's COVID-19 and influenza testing was negative. Given the patient's length of symptoms and clinical presentation, will treat with ABX. I explained my physical exam findings as well as all test results to the patient. I answered all questions asked by the patient. I stressed the importance of the patient taking his medication as directed (either prescribed or as the over the counter packaging recommends). I stressed the importance of the patient fol lowing up with his primary care provider. I stressed the importance of the patient returning to the emergency department immediately if his symptoms were to worsen or if he were to develop any dizziness, shortness of breath, difficulty breathing, chest pain, blurry vision, loss of vision, nausea, vomiting, abdominal pain, fever, chills, back pain, or any other complaints. Patient verbalized agreement and understanding with this treatment plan and discharge. Differential Diagnosis Differential Diagnoses: The differential diagnosis associated with the presentation includes URI Atypical PNA Bronchitis Cough Admission/Observation Consideration of admission/observation: Escalation of care including admission/observation considered Patient would have been admitted to the hospital had his work up had any findings where hospital admission was appropriate and his clinical presentation warranted hospital admission. Lab Data [facility] Lab Attestation statement: I reviewed the patient's lab results. My interpretation of these studies and their corresponding values is that they are grossly normal. Labs: Lab Results 11/14/24 Range/Units 09:52 COVID-19 (RACHELL) Negative (Negative) COVID-19 Clin Com See Note Influenza Type A (DANIA) Negative (Negative) Influenza Type B (DANIA) Negative (Negative) Influenza A & B Note See Note Independent Interpretation I performed an independent interpretation of an: Plain X-Ray Interpretation: My interpretation is in agreement with the radiologist's impression of this imaging study. CLINICAL HISTORY: cough Chest radiographs, 2 views Comparison: CR/SR - XR CHEST 2 VIEWS - 12/06/21 11:06 EDT Findings: The cardiomediastinal silhouette is not enlarged. Pulmonary vascularity is unremarkable. No focal consolidation or effusion. No pneumothorax. IMPRESSION: No acute cardiopulmonary findings. This document has been electronically signed by: Laureano Bergeron DO on 11/14/2024 11:16:45 Dictated By: Laureano Bergeron MD Signed By: Electronically signed by Laureano Bergeron MD 11/14/24 1118 Radiology Impression Discussion of test interpretation with radiology: I have reviewed the radiologist's reading. Prescription Management I considered prescription management with: Antibiotic (patient prescribed an antibiotic) Discharge Plan Discharge Clinical Impression: Upper respiratory infection, Cough Patient Disposition: Home, Self-Care Instructions: Upper Respiratory Infection (DC) Additional Instructions: Your work up today was consistent with an upper respiratory infection. Given the length of time, we are treating with antibiotics and a cough suppressant. IF you are prescribed home medications and/or you are taking over the counter medications at home - it is very important you continue to do so as prescribed / directed unless told otherwise. Follow up with your primary care provider. Return to the emergency department immediately if your symptoms worsen or if you develop any numbness, tingling, dizziness, shortness of breath, difficulty breathing, chest pain, blurry vision, loss of vision, nausea, vomiting, abdominal pain, fever, chills, back pain, or any other complaints. Please see the information below about our Patient Portal. If you are not yet enrolled in the [facility] Patient Portal, you will receive an enrollment email invitation following your visit to any [facility] setting. You may also self-enroll in the Patient Portal by visiting our website: [email or web address] The following information is required to access the Patient Portal: - Your [facility] Medical Record Number - Your personal home email address (must match what is in your electronic medical record, Registration staff can assist with this) - Name - Date of Capabilities of the Patient Portal: - Message some providers - View upcoming appointments - Access your health summary, medical history, and visit history - View current conditions and allergies - View procedure and lab results - View your medications, including guidelines, side effects, and precautions - Complete pre-appointment questionnaires requested by your provider - Ready summary reports of your office visits and procedures To access the Patient Portal Mobile Mel, follow these directions: - Search [employer] in the Mel Store or [employer] Store - Download the Mel - Search for [facility] - Enter your login/password Prescriptions: New benzonatate 100 mg capsule 100 mg PO BID PRN (Reason: cough) 7 Days Qty: 14 0RF doxycycline hyclate 100 mg tablet 100 mg PO BID 7 Days Qty: 14 0RF No Action amoxicillin-pot clavulanate 875-125 mg tablet 1 tab PO BID Qty: 14 0RF ibuprofen 600 mg tablet 600 mg PO Q8H PRN (Reason: pain) Qty: 20 0RF tramadol 50 mg tablet 50 mg PO BID PRN (Reason: severe pain (scale score 7-10)) Qty: 6 0RF ibuprofen 400 mg tablet 400 mg PO Q6H PRN (Reason: pain) Qty: 14 0RF acetaminophen 500 mg capsule 1,000 mg PO Q8H PRN (Reason: fever or pain) Qty: 14 0RF prednisone 20 mg tablet 20 mg PO BID 5 Days Qty: 10 0RF risperidone 2 mg tablet 2 mg PO BEDTIME omeprazole 20 mg capsule,delayed release(DR/EC) 20 mg PO DAILY PRN (Reason: Indigestion) Vyvanse 60 mg capsule 60 mg PO DAILY propranolol 20 mg tablet 20 mg PO BID mirtazapine 30 mg tablet 30 mg PO BEDTIME meloxicam 15 mg tablet 15 mg PO DAILY 30 Days Qty: 30 0RF Referrals: Susan Reynolds MD [Primary Care Provider, Internal Medicine] Stand Alone Forms: Work/School Release Interventions: ED Discharge Assessment Last Done: 11/14/24 11:17 Discharge Date/Time: 11/14/24 11:17 Print Language: Dutch
[2024-11-14 10:27] LABS: COVID-19 Test Negative (Negative); IDNOW Serial# 08D9AD1C
[2024-11-14 10:28] LABS: IDNOW Serial# 58CA691E; Influenza B2 Negative (Negative)
[2024-11-14 11:17] VITALS: BP 145/79; PULSE 95; RESP 16; TEMP 36.9; O2SAT 97
== END 2024-11-14 11:17 | disposition home or self-care (01) ==
PROVIDERS: Physician Assistant Medical; Emergency Provider Emergency Medicine; PCP Internal Medicine
DX: J06.9 Acute upper respiratory infection, unspecified (principal); R05.9 Cough, unspecified; R07.89 Other chest pain; M54.50 Low back pain, unspecified; Z03.818 Encounter for observation for suspected exposure to other biological agents ruled out
CPT/HCPCS: 71046; 87502; 87635; 99282; 99283

== ENCOUNTER → 2024-11-14 09:38 | Outpatient (BNV) | payer BC, SELFPAY | PROVIDERS: Emergency Provider Emergency Medicine; PCP Internal Medicine; Visit Provider Radiology Diagnostic Radiology | DX: R05.9 Cough, unspecified (principal) | CPT/HCPCS: 71046 ==